=== PATIENT | male | born 1960 | race Caucasian/White ===

== ENCOUNTER 2017-02-08 10:55 | Emergency (ER) | payer SELFPAY ==
[2017-02-08 10:55] VITALS: BMI 35.7
--- NOTE | 2017-02-08 12:19 | ED PDOC ---
HPI: Headache Time Seen by Provider: 02/08/17 11:59 Chief Complaint (Nursing): Headache Chief Complaint (Provider): Headache History Per: Patient History/Exam Limitations: no limitations Onset/Duration Of Symptoms: Hrs Current Symptoms Are (Timing): Still Present Severity: Moderate Quality: "Pain" Preceeding Symptoms: None Additional Complaint(s): Patient is a 56 year old male with a history of HTN, presents to ED for evaluation of headache for 1 day. Pain is described as frontal and " a cold feeling." States that he was nervous and checked his blood pressure which was 173/111. Patient took his blood pressure mediation, Lisinipril-HCTZ and Naprosyn. Denies chest pain, palpations, vision changes, thunderclap quality, nausea, vomiting, weakness or numbness. Past Medical History Reviewed: Historical Data, Nursing Documentation, Vital Signs Vital Signs: Last Vital Signs Temp 98 F 02/08/17 11:33 Pulse 62 02/08/17 11:33 Resp 20 02/08/17 11:33 BP 135/87 02/08/17 11:33 Pulse Ox 98 02/08/17 11:33 - Medical History PMH: Arthritis, Gastritis, HTN, Hypercholesterolemia Denies: Chronic Kidney Disease - Surgical History Surgical History: Hernia Repair - Family History Family History: States: Unknown Family Hx - Living Arrangements Living Arrangements: With Family - Immunization History Hx Tetanus Toxoid Vaccination: No Hx Influenza Vaccination: Yes Hx Pneumococcal Vaccination: No - Home Medications Home Medications: Ambulatory Orders Medication Instructions Recorded Lisinopril/Hydrochlorothiazide 1 tab PO DAILY 02/08/16 [Lisinopril-Hctz 20-25 mg Tab] Cephalexin [cephalexin] 500 mg PO TID 07/25/16 Simvastatin [Zocor] 40 mg PO DAILY 07/25/16 oxyCODONE/Acetaminophen [Percocet 1 tab PO .Q4-6 PRN 07/25/16 5/325 mg Tab] traMADol [Ultram] 50 mg PO TID PRN #12 tab 11/09/16 Naproxen [Naprosyn] 500 mg PO BID PRN #15 tablet 02/08/17 - Allergies Allergies/Adverse Reactions: Allergies Allergy/AdvReac Type Severity Reaction Status Date / Time No Known Allergies Allergy Verified 02/08/17 11:33 Review of Systems ROS Statement: Except As Marked, All Systems Reviewed And Found Negative Constitutional: Negative for: Fever, Weakness Eyes: Negative for: Vision Change Cardiovascular: Negative for: Chest Pain, Palpitations Respiratory: Negative for: Shortness of Breath Gastrointestinal: Negative for: Nausea, Vomiting Neurological: Positive for: Headache. Negative for: Weakness, Numbness, Dizziness Physical Exam - Reviewed Nursing Documentation Reviewed: Yes Vital Signs Reviewed: Yes - Physical Exam Appears: Positive for: Non-toxic, No Acute Distress Head Exam: Positive for: ATRAUMATIC Skin: Positive for: Normal Color, Warm Eye Exam: Positive for: Normal appearance, EOMI, PERRL Neck: Positive for: Normal, Painless ROM, Supple Cardiovascular/Chest: Positive for: Regular Rate, Rhythm. Negative for: Murmur Respiratory: Positive for: Normal Breath Sounds. Negative for: Respiratory Distress Extremity: Positive for: Normal ROM. Negative for: Calf Tenderness Neurologic/Psych: Positive for: Alert, Oriented - Laboratory Results Result Diagrams: 02/08/17 12:55 02/08/17 12:55 - ECG Interpretation Of ECG: Sinus greg @ 52, no ST-T changes. O2 Sat by Pulse Oximetry: 98 (RA) Pulse Ox Interpretation: Normal - CT Scan/US CT head Other Rad Studies (CT/US): Radiology Report Reviewed (No evidence of acute intracranial hemorrhage intracranial collection mass effect or midline shift. [id number] sinuses mucosal disease.) Medical Decision Making Medical Decision Making: Time: 1200 Initial impression: Headache Initial plan: -- CT-head -- EKG -- CMP -- Urine dip -- CBC -- U/A Scribe Attestation: Documented by Chantel Perez acting as a scribe for Vashti Romano MD MD Scribe Attestation: All medical record entries made by the Scribe were at my direction and personally dictated by me. I have reviewed the chart and agree that the record accurately reflects my personal performance of the history, physical exam, medical decision making, and the department course for this patient. I have also personally directed, reviewed, and agree with the discharge instructions and disposition. Disposition - Clinical Impression Clinical Impression: Acute headache - Disposition Referrals: [facility] [Outside] Disposition: Routine/Home Disposition Time: 14:04 Condition: IMPROVED Prescriptions: Naproxen [Naprosyn] 500 mg PO BID PRN #15 tablet PRN Reason: Pain, Moderate (4-7) Instructions: Acute Headache (ED) Forms: [facility] ED School/Work Excuse Print Language: FRISIAN
[2017-02-08 13:14] LABS: BASO # 0.1 K/uL (0.0-0.2); BASO % 0.9 % (0.0-2.0); EOS # 0.2 K/uL (0.0-0.7); HEMATOCRIT 39.8 % (35.0-51.0); LYMPH # 1.8 K/uL (1.0-4.3); LYMPH % 32.4 % (20.0-40.0); MEAN CELL VOLUME 92.4 fl (80.0-94.0); MEAN CORPUSCULAR HEMOGLOBIN 32.3 pg (27.0-31.0); MEAN PLATELET VOLUME 8.2 fl (7.2-11.7); MONO # 0.4 K/uL (0.0-0.8); MONO % 7.4 % (0.0-10.0); NEUT # 3.2 K/uL (1.8-7.0); NEUT % 56.3 % (50.0-75.0); RED CELL DISTRIBUTION WIDTH 13.3 % (11.5-14.5); WHITE BLOOD COUNT 5.7 K/uL (4.8-10.8)
[2017-02-08 13:14] LABS: RBC URINE 1 /hpf (0-3); URINE BILIRUBIN NEGATIVE (NEGATIVE); URINE BLOOD NEGATIVE (NEGATIVE); URINE COLOR YELLOW (YELLOW); URINE GLUCOSE (UA) NEG (Normal); URINE KETONE NEGATIVE (NEGATIVE); URINE LEUKOCYTE ESTERASE NEG Leu/uL (Negative); URINE PROTEIN NEGATIVE (NEGATIVE); URINE UROBILINOGEN 0.2-1.0 mg/dL (0.2-1.0); WBC URINE < 1 /hpf (0-5)
[2017-02-08 13:37] LABS: ALB/GLOB RATIO 1.2 (1.0-2.1); ALKALINE PHOSPHATASE 99 U/L (38-126); ALT/SGPT 38 U/L (21-72); AST/SGOT 32 U/L (17-59); BLOOD UREA NITROGEN 23 mg/dl (9-20); CALCIUM 9.5 mg/dL (8.4-10.2); CARBON DIOXIDE 24 mmol/L (22-30); CHLORIDE 103 mmol/L (98-107); GFR AFRICAN-AMERICAN > 60; GLUCOSE,RANDOM 107 mg/dL (75-110); POTASSIUM 3.7 MMOL/L (3.6-5.0); SODIUM 142 mmol/l (132-148); TOTAL PROTEIN 7.7 G/DL (6.3-8.2)
--- NOTE | 2017-02-08 13:44 | CT ---
PROCEDURE: CT HEAD WITHOUT CONTRAST. HISTORY: Frontal LOPEZ COMPARISON: None available. TECHNIQUE: Axial computed tomography images were obtained through the head/brain without intravenous contrast. Radiation dose: Total exam DLP = 980.0 mGy-cm. FINDINGS: HEMORRHAGE: No intracranial hemorrhage. BRAIN: No mass effect or edema. No atrophy or chronic microvascular ischemic changes. VENTRICLES: Unremarkable. No hydrocephalus. CALVARIUM: Unremarkable. PARANASAL SINUSES: [id number] mucosal thickening seen in the sphenoid and ethmoid sinuses and mild mucosal thickening in the maxillary sinuses left more than right. MASTOID AIR CELLS: Unremarkable as visualized. No inflammatory changes. OTHER FINDINGS: None. IMPRESSION: No evidence of acute intracranial hemorrhage intracranial collection mass effect or midline shift. [id number] sinuses mucosal disease.
[2017-02-08 14:57] VITALS: BP 141/84; PULSE 60; RESP 16; TEMP 98.7
--- NOTE | 2017-02-09 07:10 | CARD ---
APPROVED REPORT EKG Measurement Heart [id number] <Conclusion> Sinus bradycardia Otherwise normal ECG
[2017-02-11 09:18] VITALS: O2SAT 98
== END 2017-02-08 14:56 | disposition home or self-care (01) ==
LOC: H.ER 10:55
DX: R51 Headache (principal); I10 Essential (primary) hypertension; E78.00 Pure hypercholesterolemia, unspecified

== ENCOUNTER 2017-04-06 09:31 | Emergency (ER) | payer SELFPAY ==
[2017-04-06 09:31] VITALS: BMI 35.7
[2017-04-06 09:36] VITALS: BP 153/90; PULSE 57; TEMP 97.6; O2SAT 99
--- NOTE | 2017-04-06 10:15 | ED PDOC ---
HPI: Back Time Seen by Provider: 04/06/17 10:14 Chief Complaint (Nursing): Back Pain Chief Complaint (Provider): low back pain History Per: Patient Additional Complaint(s): 56-year-old male presents to emergency Department with pain to right side of lower back status post heavy lifting at work 2 days ago. Patient states pain does not radiate. He denies any associated bowel or bladder dysfunction. Patient has been taking Advil and Naprosyn but this has not helped the pain. He rates current pain as 8/10. Past Medical History Reviewed: Historical Data, Nursing Documentation, Vital Signs Vital Signs: Last Vital Signs Temp 97.6 F 04/06/17 09:35 Pulse 57 L 04/06/17 09:35 Resp BP 153/90 H 04/06/17 09:35 Pulse Ox 99 04/06/17 09:35 - Medical History PMH: Arthritis, Gastritis, HTN, Hypercholesterolemia, Chronic Kidney Disease - Surgical History Surgical History: Hernia Repair Other surgeries: right foot surgery - Family History Family History: States: No Known Family Hx - Living Arrangements Living Arrangements: With Family - Social History Current smoker - smoking cessation education provided: No Alcohol: Social Drugs: Denies - Home Medications Home Medications: Ambulatory Orders Medication Instructions Recorded Lisinopril/Hydrochlorothiazide 1 tab PO DAILY 02/08/16 [Lisinopril-Hctz 20-25 mg Tab] Cephalexin [cephalexin] 500 mg PO TID 07/25/16 Simvastatin [Zocor] 40 mg PO DAILY 07/25/16 oxyCODONE/Acetaminophen [Percocet 1 tab PO .Q4-6 PRN 07/25/16 5/325 mg Tab] traMADol [Ultram] 50 mg PO TID PRN #12 tab 11/09/16 Naproxen [Naprosyn] 500 mg PO BID PRN #15 tablet 02/08/17 Cyclobenzaprine [Cyclobenzaprine 10 mg PO TID PRN #20 tab 04/06/17 HCl] Nabumetone [Relafen] 500 mg PO BID #20 tab 04/06/17 - Allergies Allergies/Adverse Reactions: Allergies Allergy/AdvReac Type Severity Reaction Status Date / Time No Known Allergies Allergy Verified 02/08/17 11:33 Review of Systems ROS Statement: Except As Marked, All Systems Reviewed And Found Negative Constitutional: Negative for: Fever Cardiovascular: Negative for: Chest Pain Respiratory: Negative for: Cough Gastrointestinal: Negative for: Nausea, Vomiting Musculoskeletal: Positive for: Back Pain Physical Exam - Reviewed Nursing Documentation Reviewed: Yes Vital Signs Reviewed: Yes - Physical Exam Appears: Positive for: Well, Non-toxic, No Acute Distress Skin: Negative for: Rash Eye Exam: Positive for: Normal appearance Cardiovascular/Chest: Positive for: Regular Rate, Rhythm Respiratory: Positive for: Normal Breath Sounds Back: Positive for: Vertebral Tenderness (Mild tenderness right lower lumbar region with palpable muscle spasm, slight tenderness to midline of lumbar spine , negative bilateral straight leg raise, no CVA tenderness bilaterally) Extremity: Positive for: Normal ROM Neurologic/Psych: Positive for: Alert, Oriented - Laboratory Results Urine dip results: Negative for: Leukocyte Esterase, Blood, Nitrate, Ketones, Glucose, Bilirubin, Protein - ECG O2 Sat by Pulse Oximetry: 99 Pulse Ox Interpretation: Normal - Other Rad L/S Spine X-ray X-Ray: Interpreted by Me, Viewed By Me X-Ray Interpretation: no fx, no dis Medical Decision Making Medical Decision Makin56 year old with low back pain s/p heavy lifting Plan: IM toradol PO flexeril X-ray LS Spine Urine dip Patient states the pain is better after meds were given. He is aware of all diagnostic testing results, all questions answered. Options given for nabumetone and Flexeril. Patient was referred to orthopedist certified registered nurse practitioner for follow up. Disposition - Clinical Impression Clinical Impression: Back strain - Patient ED Disposition Is Patient to be Admitted: No Counseled Patient/Family Regarding: Studies Performed, Diagnosis, Need For Followup, Rx Given - Disposition Referrals: Clay Medina MD [Staff Provider] - Disposition: Routine/Home Disposition Time: 14:21 Condition: IMPROVED Additional Instructions: Take prescription medications as directed as needed for pain. Avoid heavy lifting. Follow-up with orthopedist or primary doctor in 2-3 days. Prescriptions: Cyclobenzaprine [Cyclobenzaprine HCl] 10 mg PO TID PRN #20 tab PRN Reason: Muscle Spasm Nabumetone [Relafen] 500 mg PO BID #20 tab Instructions: Acute Low Back Pain (ED), Muscle Strain (ED) Forms: [facility] ED School/Work Excuse Print Language: [place]
--- NOTE | 2017-04-06 13:33 | RAD ---
PROCEDURE: Lumbar spine dated 04/06/2017 HISTORY: pain COMPARISON: No prior study available for comparison. FINDINGS: BONES: No acute compression fractures no retropulsed fragments. Vertebral bodies exhibit relatively normal stature. There is mild water levoscoliosis centered at approximately the L2-L3 level. Vertebral bodies otherwise exhibit normal alignment. DISC SPACES: Mild multilevel degenerative spondylosis. Disc. Changes include varying degrees of mild posterior disc space narrowing and slightly overgrown facet joint changes. OTHER FINDINGS: None. IMPRESSION: No acute fractures. Minor multilevel degenerative spondylosis.
== END 2017-04-06 12:44 | disposition home or self-care (01) ==
LOC: H.ER 09:31
DX: S39.012A Strain of muscle, fascia and tendon of lower back, initial encounter (principal); X50.9XXA Other and unspecified overexertion or strenuous movements or postures, initial encounter; Y99.0 Civilian activity done for income or pay; E78.00 Pure hypercholesterolemia, unspecified; I12.9 Hypertensive chronic kidney disease with stage 1 through stage 4 chronic kidney disease, or unspecified chronic kidney disease

== ENCOUNTER 2017-06-07 08:52 | Emergency (ER) | payer SELFPAY ==
[2017-06-07 08:56] VITALS: PULSE 73; TEMP 97; O2SAT 99
[2017-06-07 08:57] VITALS: BMI 35.3
--- NOTE | 2017-06-07 09:53 | ED PDOC ---
HPI: Back Time Seen by Provider: 06/07/17 09:48 Chief Complaint (Nursing): Back Pain History Per: Patient Onset/Duration Of Symptoms: Other (4 weeks) Current Symptoms Are (Timing): Still Present Quality Of Discomfort: Aching Severity: Moderate Pain Scale Rating Of: 4 Previous Symptoms: Back Pain Associated Symptoms: None Exacerbating Factor(s): Movement Additional Complaint(s): Bilat low back pain radiating to both buttocks and thighs x 4 weeks. Worse over past 2 days. No injury. No weakness or parasthesias. No urinary sxs. Past Medical History Vital Signs: Last Vital Signs Temp 97 F L 06/07/17 08:56 Pulse 73 06/07/17 08:56 Resp BP 153/92 H 06/07/17 08:56 Pulse Ox 99 06/07/17 08:56 - Medical History PMH: Arthritis, Back Problems, Gastritis, HTN, Hypercholesterolemia, Chronic Kidney Disease - Surgical History Surgical History: Hernia Repair - Family History Family History: States: Unknown Family Hx - Immunization History Hx Tetanus Toxoid Vaccination: No Hx Influenza Vaccination: Yes Hx Pneumococcal Vaccination: No - Home Medications Home Medications: Ambulatory Orders Medication Instructions Recorded Lisinopril/Hydrochlorothiazide 1 tab PO DAILY 02/08/16 [Lisinopril-Hctz 20-25 mg Tab] Cephalexin [cephalexin] 500 mg PO TID 07/25/16 Simvastatin [Zocor] 40 mg PO DAILY 07/25/16 oxyCODONE/Acetaminophen [Percocet 1 tab PO .Q4-6 PRN 07/25/16 5/325 mg Tab] traMADol [Ultram] 50 mg PO TID PRN #12 tab 11/09/16 Naproxen [Naprosyn] 500 mg PO BID PRN #15 tablet 02/08/17 Cyclobenzaprine [Cyclobenzaprine 10 mg PO TID PRN #20 tab 04/06/17 HCl] Nabumetone [Relafen] 500 mg PO BID #20 tab 04/06/17 traMADol [Ultram] 50 mg PO Q8 #10 tab 06/07/17 - Allergies Allergies/Adverse Reactions: Allergies Allergy/AdvReac Type Severity Reaction Status Date / Time No Known Allergies Allergy Verified 02/08/17 11:33 Review of Systems Constitutional: Negative for: Fever Genitourinary Male: Negative for: Dysuria, Frequency Musculoskeletal: Positive for: Back Pain Neurological: Negative for: Weakness, Numbness Physical Exam - Physical Exam Appears: Positive for: Non-toxic, Uncomfortable Skin: Positive for: Normal Color, Warm, DRY Back: Positive for: Normal Inspection, Other (Bilat paralumbar spasm and tenderness). Negative for: Vertebral Tenderness Neurologic/Psych: Positive for: Alert, Oriented. Negative for: Motor/Sensory Deficits - ECG O2 Sat by Pulse Oximetry: 99 - Progress Re-evaluation Time: 12:34 Condition: Improved Disposition - Clinical Impression Clinical Impression: Low back pain - Patient ED Disposition Is Patient to be Admitted: No - Disposition Referrals: Clay Medina MD [Staff Provider] - Disposition: Routine/Home Disposition Time: 12:35 Condition: FAIR Prescriptions: traMADol [Ultram] 50 mg PO Q8 #10 tab Instructions: Back Pain (ED) Forms: [facility] (Mohawk) Print Language: NEPALI
[2017-06-07 13:10] VITALS: BP 118/89
== END 2017-06-07 12:50 | disposition home or self-care (01) ==
LOC: H.ER 08:52
DX: M54.5 Low back pain (principal); I12.9 Hypertensive chronic kidney disease with stage 1 through stage 4 chronic kidney disease, or unspecified chronic kidney disease; N18.9 Chronic kidney disease, unspecified

== ENCOUNTER 2017-07-05 08:21 | Emergency (ER) | payer SELFPAY ==
[2017-07-05 08:28] VITALS: BMI 34.2
[2017-07-05 08:29] VITALS: PULSE 64; RESP 20; TEMP 98
[2017-07-05 08:35] VITALS: BP 130/70; O2SAT 98
--- NOTE | 2017-07-05 09:32 | ED PDOC ---
HPI: Back Time Seen by Provider: 07/05/17 09:05 Chief Complaint (Nursing): Lower Extremity Problem/Injury Chief Complaint (Provider): right lower back pain History Per: Patient History/Exam Limitations: no limitations Onset/Duration Of Symptoms: Other (x 2 months) Additional Complaint(s): Sebastian Bauer is a 56 year old male, with a previous medical history of right lower back pain, who presents to the ED with complaints of right lower back pain radiating down the right leg to the foot ongoing for 2 months. He denies any numbness, weakness, urinary complaints or paresthesia. Patient reports usually taking tramadol for the pain but reports running out of the medication. PMD: none provided Past Medical History Reviewed: Historical Data, Nursing Documentation, Vital Signs Vital Signs: Last Vital Signs Temp 98 F 07/05/17 08:32 Pulse 64 07/05/17 08:32 Resp 20 07/05/17 08:32 BP 130/70 07/05/17 08:32 Pulse Ox 98 07/05/17 08:32 - Medical History PMH: Arthritis, Back Problems, Gastritis, HTN, Hypercholesterolemia, Chronic Kidney Disease - Surgical History Surgical History: Hernia Repair - Family History Family History: States: Unknown Family Hx - Immunization History Hx Tetanus Toxoid Vaccination: No Hx Influenza Vaccination: Yes Hx Pneumococcal Vaccination: No - Home Medications Home Medications: Ambulatory Orders Medication Instructions Recorded Lisinopril/Hydrochlorothiazide 1 tab PO DAILY 02/08/16 [Lisinopril-Hctz 20-25 mg Tab] Cephalexin [cephalexin] 500 mg PO TID 07/25/16 Simvastatin [Zocor] 40 mg PO DAILY 07/25/16 oxyCODONE/Acetaminophen [Percocet 1 tab PO .Q4-6 PRN 07/25/16 5/325 mg Tab] traMADol [Ultram] 50 mg PO TID PRN #12 tab 11/09/16 Naproxen [Naprosyn] 500 mg PO BID PRN #15 tablet 02/08/17 Cyclobenzaprine [Cyclobenzaprine 10 mg PO TID PRN #20 tab 04/06/17 HCl] Nabumetone [Relafen] 500 mg PO BID #20 tab 04/06/17 traMADol [Ultram] 50 mg PO Q8 #10 tab 06/07/17 Cyclobenzaprine [Cyclobenzaprine 10 mg PO Q8 #10 tab 07/05/17 HCl] Ketorolac Tromethamine [Toradol] 10 mg PO Q8 #10 tab 07/05/17 - Allergies Allergies/Adverse Reactions: Allergies Allergy/AdvReac Type Severity Reaction Status Date / Time No Known Allergies Allergy Verified 07/05/17 08:32 Review of Systems ROS Statement: Except As Marked, All Systems Reviewed And Found Negative Genitourinary Male: Negative for: Dysuria, Frequency, Incontinence, Hematuria, Penile Discharge, Scrotal Pain Musculoskeletal: Positive for: Back Pain (right lower ), Leg Pain (right), Foot Pain (rigt ) Physical Exam - Reviewed Nursing Documentation Reviewed: Yes Vital Signs Reviewed: Yes - Physical Exam Appears: Positive for: Well, Non-toxic, No Acute Distress Head Exam: Positive for: ATRAUMATIC, NORMAL INSPECTION, NORMOCEPHALIC Skin: Positive for: Normal Color, Warm, Dry Eye Exam: Positive for: Normal appearance ENT: Positive for: Normal ENT Inspection Neck: Positive for: Normal, Painless ROM, Supple Cardiovascular/Chest: Positive for: Regular Rate, Rhythm Respiratory: Positive for: CNT, Normal Breath Sounds Gastrointestinal/Abdominal: Positive for: Normal Exam, Bowel Sounds, Soft Back: Positive for: Muscle Spasm (and tenderness to the right paraspinal area ) . Negative for: L CVA Tenderness, R CVA Tenderness, Vertebral Tenderness Extremity: Positive for: Normal ROM Neurologic/Psych: Positive for: Alert, Oriented (x 3). Negative for: Motor/ Sensory Deficits - ECG O2 Sat by Pulse Oximetry: 98 (RA) Pulse Ox Interpretation: Normal Medical Decision Making Medical Decision Making: Initial Plan: * ultram 50 mg PO * Toradol 60 mg IM * reevaluation Scribe Attestation: Documented by Vashti Zheng, acting as a scribe for Abner Kendall MD. Provider Scribe Attestation: All medical record entries made by the Scribe were at my direction and personally dictated by me. I have reviewed the chart and agree that the record accurately reflects my personal performance of the history, physical exam, medical decision making, and the department course for this patient. I have also personally directed, reviewed, and agree with the discharge instructions and disposition. Disposition - Clinical Impression Clinical Impression: Back pain - Patient ED Disposition Is Patient to be Admitted: No - Disposition Referrals: [facility] [Outside] Disposition: Routine/Home Disposition Time: 09:42 Condition: FAIR Prescriptions: Cyclobenzaprine [Cyclobenzaprine HCl] 10 mg PO Q8 #10 tab Ketorolac Tromethamine [Toradol] 10 mg PO Q8 #10 tab Instructions: Chronic Back Pain (ED) Forms: [facility] (Arabic), [facility] (Tristanian) Print Language: CHILEAN
== END 2017-07-05 10:25 | disposition home or self-care (01) ==
LOC: H.ER 08:21
DX: M54.5 Low back pain (principal)
CPT/HCPCS: 96372; 99283; J1885

== ENCOUNTER 2017-07-12 08:43 | Emergency (ER) | payer SELFPAY ==
[2017-07-12 08:43] VITALS: BMI 34.2
[2017-07-12 08:50] VITALS: TEMP 97.6
[2017-07-12 09:55] VITALS: BP 129/76; PULSE 78; RESP 18; O2SAT 99
--- NOTE | 2017-07-12 09:59 | ED PDOC ---
Lower Extremity Pain/Injury Time Seen by Provider: 07/12/17 08:57 Chief Complaint (Nursing): Lower Extremity Problem/Injury Chief Complaint (Provider): Lower Extremity Problem/Injury History Per: Patient History/Exam Limitations: no limitations Onset/Duration Of Symptoms: Days (x2 days) Additional Complaint(s): 56 y/o with a past medical history of chronic sciatic and back pain who presents to the emergency department with a complaint of a lower back pain and lower leg pain bilaterally x2 days. Reports he lifted something wrong about 3 months ago and had began to experience this pain constantly. Patient states there are no new injuries and usually goes to the clinic and pain management but cannot get an appointment until mid July. Admits taking 2 tablets of Tylenol with minimal relief of pain. Denies constipation, difficulty with urination, numbness or tingling of the lower extremities, abdominal pain, chest pain, shortness of breath, nausea, vomiting, diarrhea, or recent fall. Past Medical History Reviewed: Historical Data, Nursing Documentation, Vital Signs Vital Signs: Last Vital Signs Temp 97.6 F 07/12/17 08:49 Pulse 78 07/12/17 09:53 Resp 18 07/12/17 09:53 BP 129/76 07/12/17 09:53 Pulse Ox 99 07/12/17 09:53 - Medical History PMH: Arthritis, Back Problems, Gastritis, HTN, Hypercholesterolemia, Chronic Kidney Disease - Surgical History Surgical History: Hernia Repair - Family History Family History: States: Unknown Family Hx - Immunization History Hx Tetanus Toxoid Vaccination: No Hx Influenza Vaccination: Yes Hx Pneumococcal Vaccination: No - Home Medications Home Medications: Ambulatory Orders Medication Instructions Recorded Lisinopril/Hydrochlorothiazide 1 tab PO DAILY 02/08/16 [Lisinopril-Hctz 20-25 mg Tab] Cephalexin [cephalexin] 500 mg PO TID 07/25/16 Simvastatin [Zocor] 40 mg PO DAILY 07/25/16 oxyCODONE/Acetaminophen [Percocet 1 tab PO .Q4-6 PRN 07/25/16 5/325 mg Tab] traMADol [Ultram] 50 mg PO TID PRN #12 tab 11/09/16 Naproxen [Naprosyn] 500 mg PO BID PRN #15 tablet 02/08/17 Cyclobenzaprine [Cyclobenzaprine 10 mg PO TID PRN #20 tab 04/06/17 HCl] Nabumetone [Relafen] 500 mg PO BID #20 tab 04/06/17 traMADol [Ultram] 50 mg PO Q8 #10 tab 06/07/17 Cyclobenzaprine [Cyclobenzaprine 10 mg PO Q8 #10 tab 07/05/17 HCl] Ketorolac Tromethamine [Toradol] 10 mg PO Q8 #10 tab 07/05/17 Ibuprofen [Motrin] 600 mg PO TID 7 Days 07/12/17 - Allergies Allergies/Adverse Reactions: Allergies Allergy/AdvReac Type Severity Reaction Status Date / Time No Known Allergies Allergy Verified 07/05/17 08:32 Review of Systems Constitutional: Negative for: Other (fall) Cardiovascular: Negative for: Chest Pain Respiratory: Negative for: Shortness of Breath Gastrointestinal: Negative for: Nausea, Vomiting, Abdominal Pain, Diarrhea, Constipation Genitourinary Male: Negative for: Frequency Musculoskeletal: Positive for: Back Pain, Leg Pain (b/l) Neurological: Negative for: Numbness (or tingling of the lower legs b/l) Physical Exam - Reviewed Nursing Documentation Reviewed: Yes Vital Signs Reviewed: Yes - Physical Exam Appears: Positive for: Non-toxic, No Acute Distress Head Exam: Positive for: ATRAUMATIC, NORMAL INSPECTION, NORMOCEPHALIC Skin: Positive for: Normal Color, Warm, Dry Neck: Positive for: Normal, Supple Cardiovascular/Chest: Positive for: Regular Rate, Rhythm. Negative for: Murmur Respiratory: Positive for: Normal Breath Sounds. Negative for: Accessory Muscle Use, Wheezing, Respiratory Distress Back: Positive for: Other (Mild tenderness to the lower back region.). Negative for: Normal Inspection Extremity: Positive for: Normal ROM, Other (Straight left leg test positive at 60 degrees. ). Negative for: Pedal Edema Neurologic/Psych: Positive for: Alert, Oriented (x3) - ECG O2 Sat by Pulse Oximetry: 99 (RA) Pulse Ox Interpretation: Normal Medical Decision Making Medical Decision Making: Time: 09:16 Initial impression: Exacerbation of chronic sciatic pain Initial plan: --Toradol 15 mg IM --Reevaluation Time: 09:50 Upon provider reevaluation patient is feeling better, is medically stable, and requires no further treatment in the ED at this time. Patient will be discharged home with Rx for Motrin 600 mg. Counseling was provided and all questions were answered regarding diagnosis and need for follow up with referred clinic. There is agreement to discharge plan. Return if symptoms persist or worsen. Clinical Impression: Chronic Back Pain Scribe Attestation: Documented by Purvi Camarena, acting as a scribe for Bao Marcano MD. Provider Scribe Attestation: All medical record entries made by the Scribe were at my direction and personally dictated by me. I have reviewed the chart and agree that the record accurately reflects my personal performance of the history, physical exam, medical decision making, and the department course for this patient. I have also personally directed, reviewed, and agree with the discharge instructions and disposition. Disposition - Clinical Impression Clinical Impression: Chronic back pain - Patient ED Disposition Is Patient to be Admitted: No Counseled Patient/Family Regarding: Diagnosis, Need For Followup, Rx Given - Disposition Referrals: [facility] [Outside] - 07/13/17 Disposition: Routine/Home Disposition Time: 09:50 Condition: STABLE Additional Instructions: Return if not better in 3 days. Prescriptions: Ibuprofen [Motrin] 600 mg PO TID 7 Days Instructions: Chronic Pain (ED) Forms: [employer] (Maltese)
== END 2017-07-12 09:55 | disposition home or self-care (01) ==
LOC: H.ER 08:43
DX: M54.30 Sciatica, unspecified side (principal)
CPT/HCPCS: 96372; 99283; J1885

== ENCOUNTER 2017-09-04 11:47 | Day surgery (SDC) | payer SELFPAY ==
[2017-09-04] MEDS ORDERED: Lidocaine 1% 20 MG/2 ML PF AMP ONE (12:55)
[2017-09-04] MEDS ORDERED: Iohexol 300 10 ML ONE (12:55)
[2017-09-04 12:57] VITALS: BMI 31.6
[2017-09-04] MEDS ORDERED: Bupivacaine HCl 0.5% PF (30 ml) Inj ONE (13:51)
[2017-09-04] MEDS ORDERED: Bupivacaine HCl 0.25% PF (30 ml) Inj ONE (13:51)
[2017-09-04] MEDS ORDERED: Propofol 10 mg/ml Inj (20 ML) ONE (14:27)
[2017-09-04] MEDS: Lidocaine 1% Inj (20ml) ONE ×2 (14:29→14:30)
[2017-09-04] MEDS: methylPREDNISolone Depo 80 mg/ml Inj ONE ×2 (14:29→14:30)
[2017-09-04] MEDS ORDERED: HYDROmorphone 0.5 mg/0.5 ml ISec IVP PRN (14:43)
[2017-09-04] MEDS ORDERED: Lactated Ringer's 1,000 ML IV SCH (14:45)
[2017-09-04 14:59] VITALS: RESP 18
[2017-09-04 16:25] VITALS: BP 142/85; PULSE 64; TEMP 99.1; O2SAT 99
--- NOTE | 2017-09-04 18:52 | RAD ---
PROCEDURE: Epidural injection HISTORY: PAIN MANAGEMENT COMPARISON: None TECHNIQUE: Standard protocol for this study/examination. FINDINGS: Total fluoroscopic time (continuous mode) utilized during the procedure: 9.6 seconds. Submitted images from the current procedure: 3.0 IMPRESSION: Less than 1 hr fluoroscopic time utilized during performance of the procedure.
--- NOTE | 2017-09-04 18:56 | OP ---
PROCEDURE DATE: 09/04/2017 PREOPERATIVE DIAGNOSIS: Lumbar radiculopathy. POSTOPERATIVE DIAGNOSIS: Lumbar radiculopathy. PROCEDURE: Caudal epidural under fluoroscopic guidance. ESTIMATED BLOOD LOSS: None. COMPLICATIONS: None. DESCRIPTION OF PROCEDURE: After informed consent was obtained, the patient was brought to the OR and placed on the table in a prone position. All pressure points were padded, sedation was administered by Anesthesia. The lumbosacral spine was then prepped with iodine x3 and draped in normal sterile fashion. 2 mL of 1% lidocaine was used to create a skin wheal. A 22-gauge Tuohy epidural needle was advanced under lateral view to bullock the sacrococcygeal ligament. There was no paresthesia during placement of the needle. After negative aspiration for heme or CSF, 2 mL of Omnipaque contrast was used to delineate the epidural space. After negative aspiration for heme or CSF, 20 mL of 0.5% lidocaine and Depo-Medrol 80 mg was used and injected into the epidural space. There was no paresthesia during the procedure. The patient was brought to stage II recovery room with bilateral lower extremity motor and sensory intact. Alverto Mojica MD MAIN
== END 2017-09-04 17:00 | disposition home or self-care (01) ==
LOC: H.OPSURG 11:47
PROVIDERS: ATTEND Anesthesiology Pain Medicine
DX: M54.16 Radiculopathy, lumbar region (principal); I10 Essential (primary) hypertension
CPT/HCPCS: 62323; J1040; J2001; J2704; J7120; Q9967

== ENCOUNTER 2017-09-08 18:10 | Emergency (ER) | payer SELFPAY ==
[2017-09-08 18:10] VITALS: BMI 31.6
[2017-09-08 18:16] VITALS: RESP 16; TEMP 98.7; O2SAT 96
[2017-09-08 18:28] VITALS: BP 161/95; PULSE 59
[2017-09-08] MEDS ORDERED: Silver Nitrate Topical - Stick TOP ONE (18:39)
[2017-09-08] MEDS ORDERED: Absorbable Gelatin Sponge Size 12-7 TP ONE (18:39)
[2017-09-08] MEDS ORDERED: Absorbable Gelatin Sponge Size 12-7 ONE (18:41)
--- NOTE | 2017-09-08 18:48 | ED PDOC ---
HPI: Wound Care - HPI Time Seen by Provider: 09/08/17 18:47 Chief Complaint (Nursing): Abnormal Skin Integrity Chief Complaint (Provider): wound History Per: Patient Exam Limitations: no limitations Additional Complaint(s): 57yo M in ED for eval of bleeding lesion to forehead states he popped a pimp on his forehead and it has not stopped bleeding. not a current blood thinner. Past Medical History Reviewed: Historical Data, Nursing Documentation, Vital Signs Vital Signs: Last Vital Signs Temp 98.7 F 09/08/17 18:12 Pulse 59 L 09/08/17 18:27 Resp 16 09/08/17 18:12 BP 161/95 H 09/08/17 18:27 Pulse Ox 96 09/08/17 18:12 - Medical History PMH: Arthritis, Back Problems, Gastritis, HTN, Hypercholesterolemia Denies: Chronic Kidney Disease - Surgical History Surgical History: Hernia Repair - Family History Family History: States: Unknown Family Hx - Immunization History Hx Tetanus Toxoid Vaccination: No Hx Influenza Vaccination: Yes Hx Pneumococcal Vaccination: No - Home Medications Home Medications: Ambulatory Orders Medication Instructions Recorded Ibuprofen [Motrin Tab] 1 tab PO Q6 PRN 09/04/17 Lisinopril [Zestril] 10 mg PO DAILY 09/04/17 Simvastatin [Zocor] 1 tab PO DAILY 09/04/17 - Allergies Allergies/Adverse Reactions: Allergies Allergy/AdvReac Type Severity Reaction Status Date / Time No Known Allergies Allergy Verified 07/05/17 08:32 Review of Systems ROS Statement: Except As Marked, All Systems Reviewed And Found Negative Skin: Positive for: Lesions Physical Exam - Reviewed Nursing Documentation Reviewed: Yes Vital Signs Reviewed: Yes - Physical Exam Appears: Positive for: Well, Non-toxic, No Acute Distress Head Exam: Positive for: ATRAUMATIC, NORMAL INSPECTION, NORMOCEPHALIC Skin: Positive for: Normal Color (lesion on forehead above lright eyebrow: <1cm active slow bleeding area. no swelling surronding), Warm Neck: Positive for: Normal, Painless ROM Cardiovascular/Chest: Positive for: Regular Rate, Rhythm Respiratory: Positive for: CNT, Normal Breath Sounds Gastrointestinal/Abdominal: Positive for: Normal Exam, Bowel Sounds, Soft Back: Positive for: Normal Inspection Extremity: Positive for: Normal ROM Neurologic/Psych: Positive for: Alert, Oriented - ECG O2 Sat by Pulse Oximetry: 96 Medical Decision Making Medical Decision Making: bleeding stopped with use of silver nitrate and pressure applied with gel foam. no need further ER intervention needed Orders Category Date Time Status Gelatin Sponge 12-7 [Gelfoam Size 12-7] Med 09/08/17 18:41 Discontinued 1 spg .ROUTE .STK-MED ONE Gelatin Sponge 12-7 [Gelfoam Size 12-7] Med 09/08/17 18:39 Discontinued 1 spg TP ONCE ONE Potassium/Silver Nitrate Stick [Silver Nitrate Stick] Med 09/08/17 18:39 Discontinued 1 swa TOP ONCE ONE Disposition - Clinical Impression Clinical Impression: Visit for wound care, Laceration - Patient ED Disposition Is Patient to be Admitted: No Counseled Patient/Family Regarding: Diagnosis, Need For Followup - Disposition Disposition: Routine/Home Disposition Time: 18:52 Condition: STABLE Instructions: Puncture Wound (ED) Forms: [employer] (Georgian)
== END 2017-09-08 19:00 | disposition home or self-care (01) ==
LOC: H.ER 18:10
DX: S01.81XA Laceration without foreign body of other part of head, initial encounter (principal); Y92.89 Other specified places as the place of occurrence of the external cause

== ENCOUNTER 2017-11-22 10:28 | Emergency (ER) | payer OTHER ==
[2017-11-22 10:34] VITALS: BMI 34.9
[2017-11-22 10:36] VITALS: BP 164/76; PULSE 68; RESP 20; TEMP 97.5; O2SAT 96
--- NOTE | 2017-11-22 11:48 | ED PDOC ---
HPI: Back Time Seen by Provider: 11/22/17 11:07 Chief Complaint (Nursing): Back Pain Chief Complaint (Provider): back pain History Per: Patient History/Exam Limitations: no limitations Previous Symptoms: Back Pain Associated Symptoms: None Additional Complaint(s): 57yo F in Ed for eval of lower back pain and lower extremity pain states that he is having more acute pain, hasn't been unable to get nidhi care for further care and naproxen is no longer effective. state last week he has dysuria with burning and freq no longer has symptoms. no fever no chills no nausea no recent fall injury no calf pain - Risk Factors AAA Risk Factors: Pos: Older Than 49 Years Of Age Past Medical History Reviewed: Historical Data, Nursing Documentation, Vital Signs Vital Signs: Last Vital Signs Temp 97.5 F L 11/22/17 10:35 Pulse 68 11/22/17 10:35 Resp 20 11/22/17 10:35 BP 164/76 H 11/22/17 10:35 Pulse Ox 96 11/22/17 10:35 - Medical History PMH: Arthritis, Back Problems, Gastritis, HTN, Hypercholesterolemia Denies: Chronic Kidney Disease - Surgical History Surgical History: Hernia Repair - Family History Family History: States: Unknown Family Hx - Immunization History Hx Tetanus Toxoid Vaccination: No Hx Influenza Vaccination: Yes Hx Pneumococcal Vaccination: No - Home Medications Home Medications: Ambulatory Orders Medication Instructions Recorded Ibuprofen [Motrin Tab] 1 tab PO Q6 PRN 09/04/17 Lisinopril [Zestril] 10 mg PO DAILY 09/04/17 Simvastatin [Zocor] 1 tab PO DAILY 09/04/17 Cyclobenzaprine [Cyclobenzaprine 10 mg PO BID #14 tab 11/22/17 HCl] - Allergies Allergies/Adverse Reactions: Allergies Allergy/AdvReac Type Severity Reaction Status Date / Time No Known Allergies Allergy Verified 07/05/17 08:32 Review of Systems ROS Statement: Except As Marked, All Systems Reviewed And Found Negative Gastrointestinal: Negative for: Nausea, Vomiting, Abdominal Pain Physical Exam - Reviewed Nursing Documentation Reviewed: Yes Vital Signs Reviewed: Yes - Physical Exam Appears: Positive for: Well, Non-toxic, No Acute Distress Skin: Positive for: Normal Color, Warm, DRY Cardiovascular/Chest: Positive for: Regular Rate, Rhythm Respiratory: Positive for: CNT, Normal Breath Sounds Back: Positive for: Normal Inspection. Negative for: L CVA Tenderness, R CVA Tenderness Extremity: Positive for: Normal ROM. Negative for: Calf Tenderness, Deformity, Swelling Neurologic/Psych: Positive for: Alert, Oriented - Laboratory Results Urine dip results: Negative for: Leukocyte Esterase, Blood, Nitrate, Ketones, Glucose, Bilirubin, Protein - ECG O2 Sat by Pulse Oximetry: 96 Medical Decision Making Medical Decision Making: pt most likely with exacerbation of arthritis. pt assisted with [facility] care. d/c on flexril. Disposition - Clinical Impression Clinical Impression: Low back pain - Patient ED Disposition Is Patient to be Admitted: No Counseled Patient/Family Regarding: Studies Performed, Diagnosis, Need For Followup, Rx Given - Disposition Referrals: [facility] [place] [Outside] [facility] [place] [Outside] Disposition: Routine/Home Disposition Time: 11:51 Condition: STABLE Prescriptions: Cyclobenzaprine [Cyclobenzaprine HCl] 10 mg PO BID #14 tab Instructions: Chronic Back Pain (ED) Print Language: YEMENI
== END 2017-11-22 12:33 | disposition home or self-care (01) ==
LOC: H.ER 10:28
DX: M54.9 Dorsalgia, unspecified (principal); I10 Essential (primary) hypertension; E78.00 Pure hypercholesterolemia, unspecified
CPT/HCPCS: 96372; 99282; J1885

== ENCOUNTER 2017-12-01 10:37 | Emergency (ER) | payer OTHER ==
[2017-12-01 10:37] VITALS: BMI 34.9
--- NOTE | 2017-12-01 11:28 | ED PDOC ---
HPI: Back Time Seen by Provider: 12/01/17 10:44 Chief Complaint (Nursing): Back Pain History Per: Patient Onset/Duration Of Symptoms: Days (2) Current Symptoms Are (Timing): Still Present Quality Of Discomfort: Aching Severity: Moderate Pain Scale Rating Of: 5 Previous Symptoms: Back Pain Associated Symptoms: None Exacerbating Factor(s): Movement Additional Complaint(s): Chronic low back pain radiating to both legs, worse over past 2 days. Denies weakness or parasthesias. no new injury or lifting. Denies fever or urinary sxs Past Medical History Vital Signs: Last Vital Signs Temp 97.0 F L 12/01/17 10:41 Pulse 76 12/01/17 10:41 Resp 22 12/01/17 10:41 BP 191/125 H 12/01/17 10:58 Pulse Ox 96 12/01/17 10:41 - Medical History PMH: Arthritis, Back Problems, Gastritis, HTN, Hypercholesterolemia Denies: Chronic Kidney Disease - Surgical History Surgical History: Hernia Repair - Family History Family History: States: Unknown Family Hx - Immunization History Hx Tetanus Toxoid Vaccination: No Hx Influenza Vaccination: Yes Hx Pneumococcal Vaccination: No - Home Medications Home Medications: Ambulatory Orders Medication Instructions Recorded Ibuprofen [Motrin Tab] 1 tab PO Q6 PRN 09/04/17 Lisinopril [Zestril] 10 mg PO DAILY 09/04/17 Simvastatin [Zocor] 1 tab PO DAILY 09/04/17 Cyclobenzaprine [Cyclobenzaprine 10 mg PO BID #14 tab 11/22/17 HCl] oxyCODONE/Acetaminophen [Percocet 1 ea PO Q6 #6 tab 12/01/17 5/325 mg Tab] - Allergies Allergies/Adverse Reactions: Allergies Allergy/AdvReac Type Severity Reaction Status Date / Time No Known Allergies Allergy Verified 12/01/17 10:58 Review of Systems Constitutional: Negative for: Fever Genitourinary Male: Negative for: Dysuria, Frequency Musculoskeletal: Positive for: Back Pain Neurological: Negative for: Weakness, Numbness Physical Exam - Physical Exam Appears: Positive for: Non-toxic, Uncomfortable Skin: Positive for: Normal Color, Warm, DRY Back: Positive for: Normal Inspection, Other (paravertebral spasm and tenderness lumbar area). Negative for: Vertebral Tenderness Neurologic/Psych: Positive for: Alert, Oriented. Negative for: Motor/Sensory Deficits - ECG O2 Sat by Pulse Oximetry: 96 Disposition - Clinical Impression Clinical Impression: Low back pain - Patient ED Disposition Is Patient to be Admitted: No Counseled Patient/Family Regarding: Diagnosis, Need For Followup, Rx Given - Disposition Referrals: Cuco Grimaldo III, MD [Staff Provider] - Disposition: Routine/Home Disposition Time: 14:43 Condition: FAIR Prescriptions: oxyCODONE/Acetaminophen [Percocet 5/325 mg Tab] 1 ea PO Q6 #6 tab Instructions: Chronic Back Pain (ED) Forms: [employer] (Chinese) Print Language: MAORI
[2017-12-01 13:14] VITALS: RESP 18; TEMP 98
[2017-12-01] MEDS ORDERED: Oxycodone/Acetaminophen 5/325 mg Tab PO STA (13:26)
[2017-12-01 14:57] VITALS: BP 140/90; PULSE 58; O2SAT 95
== END 2017-12-01 15:01 | disposition home or self-care (01) ==
LOC: H.ER 10:37
DX: M54.9 Dorsalgia, unspecified (principal); E78.00 Pure hypercholesterolemia, unspecified; I10 Essential (primary) hypertension
CPT/HCPCS: 96372; 99283; J1885

== ENCOUNTER 2017-12-07 13:09 | Emergency (ER) | payer SELFPAY ==
[2017-12-07 13:12] VITALS: BMI 34.2
[2017-12-07 13:13] VITALS: O2SAT 98
--- NOTE | 2017-12-07 13:42 | ED PDOC ---
HPI: Headache Time Seen by Provider: 12/07/17 13:21 Chief Complaint (Nursing): High Blood Pressure Chief Complaint (Provider): Headache History Per: Patient History/Exam Limitations: no limitations Onset/Duration Of Symptoms: Days Current Symptoms Are (Timing): Still Present Quality: "Pain" Additional Complaint(s): 57yo male with history of hypertension, presents to ED with complaints of left sided headache since yesterday. Patient was seen today at the [facility] and was found to have elevated blood pressure. He denies any associated dizziness, chest pain or shortness of breath. Patient also denies any weakness or paresthesias. He has no other medical complaints. Past Medical History Reviewed: Historical Data, Nursing Documentation, Vital Signs Vital Signs: Last Vital Signs Temp 98.2 F 12/07/17 13:12 Pulse 67 12/07/17 13:12 Resp 17 12/07/17 13:12 BP 181/124 H 12/07/17 13:12 Pulse Ox 98 12/07/17 13:12 - Medical History PMH: Arthritis, Back Problems, Gastritis, HTN, Hypercholesterolemia Denies: Chronic Kidney Disease - Surgical History Surgical History: Hernia Repair - Family History Family History: States: No Known Family Hx, Unknown Family Hx - Immunization History Hx Tetanus Toxoid Vaccination: No Hx Influenza Vaccination: Yes Hx Pneumococcal Vaccination: No - Home Medications Home Medications: Ambulatory Orders Medication Instructions Recorded Ibuprofen [Motrin Tab] 1 tab PO Q6 PRN 09/04/17 Lisinopril [Zestril] 10 mg PO DAILY 09/04/17 Simvastatin [Zocor] 1 tab PO DAILY 09/04/17 Cyclobenzaprine [Cyclobenzaprine 10 mg PO BID #14 tab 11/22/17 HCl] oxyCODONE/Acetaminophen [Percocet 1 ea PO Q6 #6 tab 12/01/17 5/325 mg Tab] - Allergies Allergies/Adverse Reactions: Allergies Allergy/AdvReac Type Severity Reaction Status Date / Time No Known Allergies Allergy Verified 12/07/17 13:12 Review of Systems ROS Statement: Except As Marked, All Systems Reviewed And Found Negative Cardiovascular: Negative for: Chest Pain, Palpitations Respiratory: Negative for: Shortness of Breath Neurological: Positive for: Headache. Negative for: Weakness, Numbness, Dizziness Physical Exam - Reviewed Nursing Documentation Reviewed: Yes Vital Signs Reviewed: Yes - Physical Exam Appears: Positive for: Non-toxic, No Acute Distress Head Exam: Positive for: ATRAUMATIC, NORMAL INSPECTION, NORMOCEPHALIC Eye Exam: Positive for: Normal appearance, PERRL Neck: Positive for: Supple Cardiovascular/Chest: Positive for: Regular Rate, Rhythm Respiratory: Positive for: Normal Breath Sounds. Negative for: Wheezing, Respiratory Distress Gastrointestinal/Abdominal: Positive for: Normal Exam, Soft. Negative for: Tenderness Extremity: Positive for: Normal ROM. Negative for: Tenderness (lower extremity) , Pedal Edema Neurologic/Psych: Positive for: Alert, Oriented. Negative for: Motor/Sensory Deficits - ECG O2 Sat by Pulse Oximetry: 98 (RA) Pulse Ox Interpretation: Normal Medical Decision Making Medical Decision Making: Impression: Headache Plan: -- EKG -- Catapres 0.1 mg PO Reassess Scribe Attestation: Documented by Sybil Marte acting as a scribe for Abner Kendall MD. Provider Attestation: All medical record entries made by the Scribe were at my direction and personally dictated by me. I have reviewed the chart and agree that the record accurately reflects my personal performance of the history, physical exam, medical decision making, and the department course for this patient. I have also personally directed, reviewed, and agree with the discharge instructions and disposition. Disposition - Clinical Impression Clinical Impression: Hypertension - Patient ED Disposition Is Patient to be Admitted: No Counseled Patient/Family Regarding: Studies Performed, Diagnosis, Need For Followup - Disposition Referrals: [facility] [Outside] Disposition: Routine/Home Disposition Time: 16:38 Condition: FAIR Instructions: Hypertension (ED) Forms: [employer] ([place]izen [place]) Print Language: SLOVENIAN
[2017-12-07 16:14] VITALS: BP 160/98; PULSE 61; RESP 20; TEMP 97.7
--- NOTE | 2017-12-08 18:17 | CARD ---
APPROVED REPORT EKG Measurement Heart [id number] <Conclusion> Normal sinus rhythm Prolonged QT Abnormal ECG
== END 2017-12-07 16:45 | disposition home or self-care (01) ==
LOC: H.ER 13:09
DX: I10 Essential (primary) hypertension (principal); E78.00 Pure hypercholesterolemia, unspecified

== ENCOUNTER 2018-01-01 10:45 | Day surgery (SDC) | payer SELFPAY ==
[2017-12-29 11:13] VITALS: BMI 31.6
[2018-01-01 11:30] VITALS: RESP 18
[2018-01-01] MEDS ORDERED: methylPREDNISolone Depo 80 mg/ml Inj ONE (12:56)
[2018-01-01] MEDS ORDERED: Bupivacaine HCl 0.25% PF (10 ml) Inj ONE (12:56)
[2018-01-01] MEDS ORDERED: Lidocaine 1% Inj (20ml) ONE (12:56)
[2018-01-01] MEDS ORDERED: Lactated Ringer's 1,000 ML IV ONE (13:55)
[2018-01-01] MEDS ORDERED: Lidocaine 1% Inj (20ml) IJ ONE (13:59)
[2018-01-01] MEDS ORDERED: Midazolam 2 MG/2 ML VIAL ONE (13:59)
[2018-01-01] MEDS ORDERED: HYDROmorphone 0.5 mg/0.5 ml ISec IVP PRN (14:12)
[2018-01-01 16:45] VITALS: BP 132/76; PULSE 57; TEMP 97.6; O2SAT 99
--- NOTE | 2018-01-01 22:01 | OP ---
PROCEDURE DATE: 01/01/2018 PREOPERATIVE DIAGNOSIS: Sacroiliitis. POSTOPERATIVE DIAGNOSIS: Sacroiliitis. PROCEDURE: Sacroiliac joint injection under fluoroscopic guidance. ANESTHESIOLOGIST: Dr. Pascual. COMPLICATIONS: None. ESTIMATED BLOOD LOSS: None. DESCRIPTION OF PROCEDURE: After informed consent was obtained, the patient was brought to the OR and placed on the table in prone position. All pressure points were padded, sedation was administered by Anesthesia. The lumbosacral spine was prepped with iodine x3 and draped in the normal sterile fashion. After a sterile prep and drape, 3 mL of 1% lidocaine was used to create skin wheals using a 25-gauge needle. X-ray was used in AP view to identify the right sacroiliac joint. A 22-gauge 3.5-inch spinal needle was placed to bony contact at the inferomedial edge of the right sacroiliac joint. There was no paresthesia during placement of the needle. After negative aspiration for heme or CSF, 2 mL of 0.25% preservative-free Marcaine and Depo-Medrol was easily instilled. This procedure was repeated for the middle, and superior borders of the right sacroiliac joint and lower, middle, and superior borders of the left sacroiliac joint. There was no paresthesia during the case. The patient was brought to stage III recovery room with bilateral lower extremity motor and sensory intact. An 80 mg of Depo-Medrol was used for the case. Alverto Mojica MD MTDD
--- NOTE | 2018-01-04 13:57 | RAD ---
PROCEDURE: Intraoperative Fluoroscopy. HISTORY: PAIN MANAGEMENT FINDINGS: Fluoroscopic assistance was provided for pain management procedure. Please refer to the operative report from ALTHEA Pedroza. 30.8 seconds of fluoroscopy time was utilized with a total radiation dose DLP 9.61 mGy.
== END 2018-01-01 16:45 | disposition home or self-care (01) ==
LOC: H.OPSURG 10:45
PROVIDERS: ATTEND Anesthesiology Pain Medicine
DX: M46.1 Sacroiliitis, not elsewhere classified (principal); E78.5 Hyperlipidemia, unspecified; I10 Essential (primary) hypertension
CPT/HCPCS: 27096; J1040; J2250; J3010; J7120

== ENCOUNTER 2018-02-16 09:09 | Inpatient (IN) | payer SELFPAY ==
[2018-02-16 09:25] VITALS: BMI 34.2
--- NOTE | 2018-02-16 10:38 | ED PDOC ---
HPI: General Adult Time Seen by Provider: 02/16/18 10:15 Chief Complaint (Nursing): Dizziness/Lightheaded Chief Complaint (Provider): near syncope History Per: Patient History/Exam Limitations: language barrier Onset/Duration Of Symptoms: Other (just prior to ED arrival) Have you had recent travel within the past 21 days to any of the following countries: [place], [place], [place] or [place]?: No Current Symptoms Are (Timing): Other (still present) Severity: Mild Quality: mild-moderate Similar Symptoms Previously: none Recent Trauma: no Additional Complaint(s): pt p/w + sudden onset of not feeling well while at work today, just prior to ED arrival; pt felt extremely dizzy/lightheaded, like he was about to pass out; pt did not pass out; pt states he also had diffuse headache/cramps; pt also + felt + chest cramps/pressure, mainly left sided, non-radiating; + palpitations, mild sob; + profuse sweating as well; no fever/chills, no abd pain, + mild nausea, no vomiting, no numbness/tingling, no urinary/bowel changes, no fall/trauma/ sick contact, no travel. pt denied any bleeding lately pt denied slurr speech, vision changes, no neck pain, no focal weakness pt is here for further eval pt's without other complaints. PCP: [facility] pt is right hand dominate Family Hx: mother/father with stroke hx Past Medical History Reviewed: Historical Data, Nursing Documentation, Vital Signs Vital Signs: Last Vital Signs Temp 97.9 F 02/17/18 08:15 Pulse 61 02/17/18 08:15 Resp 18 02/17/18 08:15 BP 157/88 H 02/17/18 08:15 Pulse Ox 95 02/17/18 08:15 - Medical History PMH: Arthritis, Back Problems, Gastritis, HTN, Hypercholesterolemia Denies: Chronic Kidney Disease - Surgical History Surgical History: Hernia Repair - Family History Family History: States: Unknown Family Hx - Living Arrangements Living Arrangements: With Family - Social History Current smoker - smoking cessation education provided: No Ex-Smoker (has not smoked in the last 12 months): No Alcohol: Occasional Drugs: Denies - Immunization History Hx Tetanus Toxoid Vaccination: No Hx Influenza Vaccination: Yes Hx Pneumococcal Vaccination: No - Home Medications Home Medications: Ambulatory Orders Medication Instructions Recorded Aspirin [Ecotrin] 81 mg PO DAILY 02/16/18 Lisinopril/Hydrochlorothiazide 1 tab PO DAILY 02/16/18 [Lisinopril-Hctz 20-25 mg Tab] Naproxen [Naprosyn] 500 mg PO Q12 PRN 02/16/18 - Allergies Allergies/Adverse Reactions: Allergies Allergy/AdvReac Type Severity Reaction Status Date / Time No Known Allergies Allergy Verified 01/01/18 11:37 Review of Systems ROS Statement: Except As Marked, All Systems Reviewed And Found Negative Constitutional: Positive for: Sweats, Weakness, Malaise. Negative for: Weight loss Eyes: Negative for: Pain, Vision Change ENT: Negative for: Ear Pain Cardiovascular: Positive for: Chest Pain, Palpitations Respiratory: Negative for: Cough, Shortness of Breath, SOB with Exertion Gastrointestinal: Positive for: Nausea. Negative for: Vomiting, Abdominal Pain Genitourinary Male: Negative for: Dysuria, Hematuria Musculoskeletal: Negative for: Neck Pain, Back Pain Skin: Negative for: Rash Neurological: Positive for: Weakness, Headache, Dizziness. Negative for: Numbness, Incoordination, Altered Mental Status Physical Exam - Reviewed Nursing Documentation Reviewed: Yes Vital Signs Reviewed: Yes - Physical Exam Appears: Positive for: Well (alert/awake, GCS = 15, oriented x 3, mildly uncomfortable, NAD, resting in bed), No Acute Distress, Uncomfortable Head Exam: Positive for: ATRAUMATIC, NORMAL INSPECTION, NORMOCEPHALIC Skin: Positive for: Normal Color (cap refill < 1sec, no ulcerations, no petechiae, no rashes), Warm, Dry Eye Exam: Positive for: Normal appearance, EOMI, PERRL, Other (visual field intact b/l, no nystagmus, no photophobia). Negative for: Nystagmus ENT: Positive for: Normal ENT Inspection Neck: Positive for: Normal, Painless ROM, Supple. Negative for: Decreased ROM Cardiovascular/Chest: Positive for: Regular Rate, Rhythm, Other (+S1, +S2). Negative for: Murmur Respiratory: Positive for: Normal Breath Sounds, Other (CTA b/l, no w/r/r, no accessory muscle use noted, no tachypenia) Gastrointestinal/Abdominal: Positive for: Normal Exam, Bowel Sounds, Soft, Other (well nourished female, no focal tenderness, no masses/rebound/guarding/ rigidity, no soni's sign, no mcburney's point tenderness). Negative for: Tenderness Back: Positive for: Normal Inspection. 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 HISTORY: Chest pain/dizziness COMPARISON: 02/08/2017. TECHNIQUE: Axial computed tomography images were obtained through the head/brain without intravenous contrast. Radiation dose: Total exam DLP = 806.22 mGy-cm. This CT exam was performed using one or more of the following dose reduction techniques: Automated exposure control, adjustment of the mA and/or kV according to patient size, and/or use of iterative reconstruction technique. FINDINGS: HEMORRHAGE: No intracranial hemorrhage. BRAIN: Alonso-white matter differentiation is preserved. There is no mass, mass effect or abnormal extra-axial fluid collection. There is no territorial infarction. VENTRICLES: There is mild age-related global parenchymal volume loss and proportionate enlargement of the ventricles and cortical sulci. CALVARIUM: There is no calvarial fracture or extracranial soft tissue swelling. Stop PARANASAL SINUSES: There is mild polypoid mucosal thickening in the right sphenoid chamber and posterior ethmoid air cells. The remaining included paranasal sinuses are predominantly clear. MASTOID AIR CELLS: The mastoid air cells are underdeveloped. OTHER FINDINGS: None. IMPRESSION: No acute intracranial abnormality. Mild age-related global parenchymal volume loss. HISTORY: COMPARISON: 11/09/2016 TECHNIQUE: Chest PA and lateral FINDINGS: LINES AND TUBES: None. LUNG AND PLEURA: The lungs are well inflated and clear. There is bibasilar atelectasis. HEART AND MEDIASTINUM: The heart is not enlarged. The hilar and mediastinal contours are within normal limits. SKELETAL STRUCTURES: The bony structures are within normal limits for the patient's age. VISUALIZED UPPER ABDOMEN: Normal. OTHER FINDINGS: None. IMPRESSION: No active pulmonary disease. pt continues to have dizziness/lightheadedness pt is made aware of his medical results agrees with admission 1210 - family court justice contacted, made aware, agrees with admission Re-evaluation Time: 11:38 Condition: Improving,but remains with symptoms - Physician Consult Information Time Consulting Physican Contacted: 12:05 Physician Contacted: family carr Outcome Of Conversation: resident contacted, made aware, agrees with admission/observation Medical Decision Making Medical Decision Making: Impression: near syncope with chest pain i have consider all the differential diagnosis regarding pt's chief medical complaints/clinical findings, including but are not limited to: near syncope with chest pain A/P: near syncope with chest pain - labs - iv - xray - acs eval - ct head - supportive care - observe Disposition - Clinical Impression Clinical Impression: Near syncope, Dizziness, Chest pain with low risk of acute coronary syndrome - Patient ED Disposition Is Patient to be Admitted: Yes Discussed With : family carr (made aware, agrees with admission) Doctor Will See Patient In The: Hospital Counseled Patient/Family Regarding: Studies Performed, Diagnosis, Rx Given - Disposition Disposition Time: 12:05 Condition: STABLE - Pt Status Changed To: Hospital Disposition Of: Observation
[2018-02-16 10:56] LABS: BASO # 0.1 K/uL (0.0-0.2); BASO % 1.2 % (0.0-2.0); EOS # 0.1 K/uL (0.0-0.7); EOS % 2.5 % (0.0-4.0); HEMOGLOBIN 13.7 g/dL (12.0-18.0); LYMPH # 1.2 K/uL (1.0-4.3); LYMPH % 25.7 % (20.0-40.0); MEAN CELL VOLUME 92.3 fl (80.0-94.0); MEAN CORPUSCULAR HEMOGLOBIN 32.2 pg (27.0-31.0); MEAN CORPUSCULAR HGB CONC 34.9 g/dL (33.0-37.0); MONO # 0.4 K/uL (0.0-0.8); MONO % 8.2 % (0.0-10.0); NEUT # 2.9 K/uL (1.8-7.0); NEUT % 62.4 % (50.0-75.0); RBC 4.26 Mil/uL (4.40-5.90); RED CELL DISTRIBUTION WIDTH 13.3 % (11.5-14.5); WHITE BLOOD COUNT 4.6 K/uL (4.8-10.8)
[2018-02-16 11:01] LABS: URINE BACTERIA RARE (<OCC); URINE BILIRUBIN NEGATIVE (NEGATIVE); URINE BLOOD NEGATIVE (NEGATIVE); URINE CLARITY CLEAR (Clear); URINE COLOR YELLOW (YELLOW); URINE GLUCOSE (UA) NEG (Normal); URINE LEUKOCYTE ESTERASE NEG Leu/uL (Negative); URINE PROTEIN NEGATIVE (NEGATIVE); URINE UROBILINOGEN 0.2-1.0 mg/dL (0.2-1.0)
[2018-02-16 11:07] LABS: ALB/GLOB RATIO 1.2 (1.0-2.1); ALT/SGPT 52 U/L (21-72); AST/SGOT 32 U/L (17-59); BLOOD UREA NITROGEN 18 mg/dl (9-20); GFR AFRICAN-AMERICAN > 60; GFR NON-AFRICAN AMERICAN > 60; LIPASE 84 U/L (23-300)
[2018-02-16 11:19] LABS: B-TYPE NATRIURETIC PEPTIDE 175 pg/ml (0-900)
[2018-02-16] MEDS: Sodium Chloride 0.9% 1,000 ML IV SCH ×2 (11:28→22:18)
--- NOTE | 2018-02-16 11:38 | CT ---
PROCEDURE: CT HEAD WITHOUT CONTRAST. HISTORY: Chest pain/dizziness COMPARISON: 02/08/2017. TECHNIQUE: Axial computed tomography images were obtained through the head/brain without intravenous contrast. Radiation dose: Total exam DLP = 806.22 mGy-cm. This CT exam was performed using one or more of the following dose reduction techniques: Automated exposure control, adjustment of the mA and/or kV according to patient size, and/or use of iterative reconstruction technique. FINDINGS: HEMORRHAGE: No intracranial hemorrhage. BRAIN: Alonso-white matter differentiation is preserved. There is no mass, mass effect or abnormal extra-axial fluid collection. There is no territorial infarction. VENTRICLES: There is mild age-related global parenchymal volume loss and proportionate enlargement of the ventricles and cortical sulci. CALVARIUM: There is no calvarial fracture or extracranial soft tissue swelling. Stop PARANASAL SINUSES: There is mild polypoid mucosal thickening in the right sphenoid chamber and posterior ethmoid air cells. The remaining included paranasal sinuses are predominantly clear. MASTOID AIR CELLS: The mastoid air cells are underdeveloped. OTHER FINDINGS: None. IMPRESSION: No acute intracranial abnormality. Mild age-related global parenchymal volume loss.
--- NOTE | 2018-02-16 12:25 | RAD ---
HISTORY: COMPARISON: 11/09/2016 TECHNIQUE: Chest PA and lateral FINDINGS: LINES AND TUBES: None. LUNG AND PLEURA: The lungs are well inflated and clear. There is bibasilar atelectasis. HEART AND MEDIASTINUM: The heart is not enlarged. The hilar and mediastinal contours are within normal limits. SKELETAL STRUCTURES: The bony structures are within normal limits for the patient's age. VISUALIZED UPPER ABDOMEN: Normal. OTHER FINDINGS: None. IMPRESSION: No active pulmonary disease.
--- NOTE | 2018-02-16 13:14 | CP.PCM.HP ---
<Alexandro Mattson - Last Filed: 02/16/18 15:10> History of Present Illness - History of Present Illness History of Present Illness: Sebastian is 57 yo M patient with PMH of HTN present to the ED c/o worsening chest oppression and dizziness since this morning, patient states that symptoms start today while he was at work, with associated blurred vision and almost falling, states that the pain is restrosternal, no radiates, intermittent, 5/10, better when he take a deep breath and no aggravating factors. Patient denies nausea, vomiting, fever, headache, sob, palpitations, no abdominal pain or heartburn, no sick contacts, recent travels, denies urinary symptoms. Patient states he has been with this since 1 year ago but never felt dizzy before. Denies recent stress or anxiety. PMD: at [facility] PMH: HTN, HLP MEDS: Lisinopril 20 mg/HCTZ 25mg daily, simvastatin 40 mg daily. NKDA PSH: R foot 2015 SH: lives at home with his denies etoh, tobacco, illicit drugs ED course: VS: T 97.8 BP 143/93, HR 54, RR 20, sat 99 RA. PE CVS: RRR, + s1 s2, resp cta b/l, neuro: wnl Labs: cbc wnl, cmp wnl, EKG: no st-t changes, no ectopy Head CT neg for blood or mass. MEDS: ASA 325 mg, reglan, meclizine. Present on Admission - Present on Admission Any Indicators Present on Admission: No Review of Systems - Review of Systems All systems: reviewed and no additional remarkable complaints except (HPI) Past Patient History - Infectious Disease Hx of Infectious Diseases: None - Past Medical History & Family History Past Medical History?: Yes - Past Social History Smoking Status: Never Smoked - CARDIAC Hx Hypercholesterolemia: Yes Hx Hypertension: Yes - PULMONARY Hx Respiratory Disorders: No - NEUROLOGICAL Hx Neurological Disorder: No - HEENT Hx HEENT Problems: No - RENAL Hx Chronic Kidney Disease: No - ENDOCRINE/METABOLIC Hx Endocrine Disorders: No - HEMATOLOGICAL/ONCOLOGICAL Hx Blood Disorders: No Hx Blood Transfusions: No - INTEGUMENTARY Hx Dermatological Problems: No - MUSCULOSKELETAL/RHEUMATOLOGICAL Hx Arthritis: Yes - GASTROINTESTINAL Hx Gastritis: Yes - GENITOURINARY/GYNECOLOGICAL Hx Genitourinary Disorders: No - PSYCHIATRIC Hx Emotional Abuse: No Hx Physical Abuse: No Hx Substance Use: No - SURGICAL HISTORY Hx Surgeries: Yes Hx Herniorrhaphy: Yes (right inguinal) Hx Orthopedic Surgery: Yes (rt foot surgey) Other/Comment: Hx right foot surgery (tendon). Hx Epidural injection (steriod- lumbar spine) - ANESTHESIA Hx Anesthesia: Yes Hx Anesthesia Reactions: No Hx Malignant Hyperthermia: No Meds Allergies/Adverse Reactions: Allergies Allergy/AdvReac Type Severity Reaction Status Date / Time No Known Allergies Allergy Verified 01/01/18 11:37 Physical Exam - Constitutional Appears: No Acute Distress - Head Exam Head Exam: NORMAL INSPECTION - Eye Exam Eye Exam: EOMI, PERRL - Respiratory Exam Respiratory Exam: Clear to Auscultation Bilateral, NORMAL BREATHING PATTERN. absent: Rales, Rhonchi, Wheezes - Cardiovascular Exam Cardiovascular Exam: Bradycardia, REGULAR RHYTHM, +S1, +S2. absent: Systolic Murmur - GI/Abdominal Exam GI & Abdominal Exam: Normal Bowel Sounds, Soft. absent: Distended, Tenderness - Extremities Exam Extremities exam: Negative for: calf tenderness - Neurological Exam Neurological exam: Alert, CN II-XII Intact, Oriented x3 - Psychiatric Exam Psychiatric exam: Normal Mood - Skin Skin Exam: Dry, Intact, Warm Results - Vital Signs Recent Vital Signs: Last Vital Signs Temp 97.8 F 02/16/18 09:25 Pulse 56 L 02/16/18 13:07 Resp 20 02/16/18 13:07 BP 165/88 H 02/16/18 13:07 Pulse Ox 100 02/16/18 13:07 - Labs Result Diagrams: 02/16/18 10:52 02/16/18 10:52 Labs: Laboratory Results - last 24 hr 02/16/18 02/16/18 02/16/18 10:52 10:52 10:52 WBC 4.6 L RBC 4.26 L Hgb 13.7 Hct 39.3 MCV 92.3 MCH 32.2 H MCHC 34.9 RDW 13.3 Plt Count 228 MPV 8.0 Neut % (Auto) 62.4 Lymph % (Auto) 25.7 [place] % (Auto) 8.2 Eos % (Auto) 2.5 Baso % (Auto) 1.2 Neut # (Auto) 2.9 Lymph # (Auto) 1.2 [place] # (Auto) 0.4 Eos # (Auto) 0.1 Baso # (Auto) 0.1 Sodium 143 Potassium 3.6 Chloride 107 Carbon Dioxide 23 Anion Gap 17 BUN 18 Creatinine 0.8 Est GFR ( Amer) > 60 Est GFR (Non-Af Amer) > 60 Random Glucose 116 H Calcium 9.0 Phosphorus 3.0 Magnesium 2.1 Total Bilirubin 1.0 AST 32 ALT 52 Alkaline Phosphatase 76 Troponin I < 0.0120 NT-Pro-B Natriuret Pep 175 Total Protein 7.4 Albumin 4.0 Globulin 3.4 Albumin/Globulin Ratio 1.2 Lipase 84 TSH 3rd Generation 1.68 Urine Color Yellow Urine Clarity Clear Urine pH 6.0 Ur Specific [place] 1.018 Urine Protein Negative Urine Glucose (UA) Neg Urine Ketones Negative Urine Blood Negative Urine Nitrate Negative Urine Bilirubin Negative Urine Urobilinogen 0.2-1.0 Ur Leukocyte Esterase Neg Urine RBC (Auto) 2 Urine Microscopic WBC 1 Urine Bacteria Rare Assessment & Plan - Assessment and Plan (Free Text) Assessment: 57 yo M patient with PMH of HTN admitted for chest pain and near syncope. Plan: 1- Chest pain/ near syncope /r/o ACS/aortic disection - admit to tele - heart healthy diet - VS Q4 - ASA 81 mg PO daily - ED EKG prolonged QT, sinus greg, no ST-T changes - CXR: neg - Head CT: negative for blood or mass - RA BP 193/100, LA BP 182/99 - Troponin x1 neg - asymptomatic now - CBC,CMP,UA wnl - f/u troponin in AM - f/u EKG in AM 2- HTN, controlled - continue with home meds - lisinopril 20 mg PO daily -HCTZ 25 mg PO daily 3- DVT prophylaxis - Heparin 5000 units BID <Gladys Max - Last Filed: 02/17/18 09:46> Results - Vital Signs Recent Vital Signs: Last Vital Signs Temp 97.9 F 02/17/18 08:15 Pulse 61 02/17/18 08:15 Resp 18 02/17/18 08:15 BP 157/88 H 02/17/18 08:15 Pulse Ox 95 02/17/18 08:15 - Labs Result Diagrams: 02/17/18 05:55 02/17/18 05:55 Labs: Laboratory Results - last 24 hr 02/16/18 02/16/18 02/16/18 10:52 10:52 10:52 WBC 4.6 L RBC 4.26 L Hgb 13.7 Hct 39.3 MCV 92.3 MCH 32.2 H MCHC 34.9 RDW 13.3 Plt Count 228 MPV 8.0 Neut % (Auto) 62.4 Lymph % (Auto) 25.7 [place] % (Auto) 8.2 Eos % (Auto) 2.5 Baso % (Auto) 1.2 Neut # (Auto) 2.9 Lymph # (Auto) 1.2 [place] # (Auto) 0.4 Eos # (Auto) 0.1 Baso # (Auto) 0.1 Sodium 143 Potassium 3.6 Chloride 107 Carbon Dioxide 23 Anion Gap 17 BUN 18 Creatinine 0.8 Est GFR ( Amer) > 60 Est GFR (Non-Af Amer) > 60 Random Glucose 116 H Calcium 9.0 Phosphorus 3.0 Magnesium 2.1 Total Bilirubin 1.0 AST 32 ALT 52 Alkaline Phosphatase 76 Troponin I < 0.0120 NT-Pro-B Natriuret Pep 175 Total Protein 7.4 Albumin 4.0 Globulin 3.4 Albumin/Globulin Ratio 1.2 Lipase 84 TSH 3rd Generation 1.68 Urine Color Yellow Urine Clarity Clear Urine pH 6.0 Ur Specific [place] 1.018 Urine Protein Negative Urine Glucose (UA) Neg Urine Ketones Negative Urine Blood Negative Urine Nitrate Negative Urine Bilirubin Negative Urine Urobilinogen 0.2-1.0 Ur Leukocyte Esterase Neg Urine RBC (Auto) 2 Urine Microscopic WBC 1 Urine Bacteria Rare 02/16/18 02/17/18 02/17/18 22:02 05:55 05:55 WBC 4.9 RBC 4.20 L Hgb 13.7 Hct 39.2 MCV 93.3 MCH 32.5 H MCHC 34.9 RDW 13.8 Plt Count 227 MPV 8.4 Neut % (Auto) 56.6 Lymph % (Auto) 30.9 [place] % (Auto) 8.8 Eos % (Auto) 2.7 Baso % (Auto) 1.0 Neut # (Auto) 2.8 Lymph # (Auto) 1.5 [place] # (Auto) 0.4 Eos # (Auto) 0.1 Baso # (Auto) 0.0 Sodium 144 Potassium 3.3 L Chloride 106 Carbon Dioxide 23 Anion Gap 18 BUN 18 Creatinine 0.9 Est GFR ( Amer) > 60 Est GFR (Non-Af Amer) > 60 Random Glucose 107 Calcium 9.2 Phosphorus Magnesium Total Bilirubin 0.8 AST 26 ALT 53 Alkaline Phosphatase 67 Troponin I 0.0150 < 0.0120 NT-Pro-B Natriuret Pep Total Protein 6.8 Albumin 3.6 Globulin 3.1 Albumin/Globulin Ratio 1.2 Lipase TSH 3rd Generation Urine Color Urine Clarity Urine pH Ur Specific [place] Urine Protein Urine Glucose (UA) Urine Ketones Urine Blood Urine Nitrate Urine Bilirubin Urine Urobilinogen Ur Leukocyte Esterase Urine RBC (Auto) Urine Microscopic WBC Urine Bacteria - PA / SALES ARCHITECT / Resident Statement MD/DO has reviewed & agrees with the documentation as recorded. MD/DO has examined the patient and agrees with the treatment plan. (PATIENT SEEN AND EXAMINED. CASE DISCUSSED WITH RESIDENT. AGREE WITH FINDINGS/PLAN)
--- NOTE | 2018-02-16 18:04 | CARD ---
APPROVED REPORT EKG Measurement Heart [id number] <Conclusion> Sinus bradycardia Prolonged QT Abnormal ECG
--- NOTE | 2018-02-16 18:08 | CARD ---
APPROVED REPORT EKG Measurement Heart [id number] <Conclusion> Sinus bradycardia Prolonged QT Abnormal ECG
[2018-02-17 00:19] VITALS: RESP 18
[2018-02-17 07:50] LABS: EOS # 0.1 K/uL (0.0-0.7); EOS % 2.7 % (0.0-4.0); HEMOGLOBIN 13.7 g/dL (12.0-18.0); LYMPH # 1.5 K/uL (1.0-4.3); LYMPH % 30.9 % (20.0-40.0); MEAN CELL VOLUME 93.3 fl (80.0-94.0); MEAN CORPUSCULAR HEMOGLOBIN 32.5 pg (27.0-31.0); MEAN CORPUSCULAR HGB CONC 34.9 g/dL (33.0-37.0); MEAN PLATELET VOLUME 8.4 fl (7.2-11.7); MONO # 0.4 K/uL (0.0-0.8); MONO % 8.8 % (0.0-10.0); NEUT # 2.8 K/uL (1.8-7.0); NEUT % 56.6 % (50.0-75.0); NRBC % 0.1 % (0.0-0.0); RBC 4.2 Mil/uL (4.40-5.90); RED CELL DISTRIBUTION WIDTH 13.8 % (11.5-14.5); WHITE BLOOD COUNT 4.9 K/uL (4.8-10.8)
[2018-02-17 07:58] LABS: ALB/GLOB RATIO 1.2 (1.0-2.1); ALBUMIN 3.6 g/dL (3.5-5.0); ALT/SGPT 53 U/L (21-72); AST/SGOT 26 U/L (17-59); BLOOD UREA NITROGEN 18 mg/dl (9-20); CALCIUM 9.2 mg/dL (8.4-10.2); GFR AFRICAN-AMERICAN > 60; GFR NON-AFRICAN AMERICAN > 60
[2018-02-17 09:59] VITALS: O2SAT 98
[2018-02-17] MEDS ORDERED: Potassium Chloride 20 mEq ER Tab PO ONE (10:00)
[2018-02-17 12:42] VITALS: BP 180/90; PULSE 62; TEMP 97.8
--- NOTE | 2018-02-18 17:59 | CP.PCM.DIS ---
<Alexandro Mattson - Last Filed: 02/18/18 18:14> Provider - Provider Date of Admission: 02/16/18 13:52 Attending physician: Gladys aMx MD Time Spent in preparation of Discharge (in minutes): 30 Diagnosis - Discharge Diagnosis (1) Chest pain Status: Resolved (2) Dizziness Status: Resolved Hospital Course - Lab Results Lab Results: Most Recent Lab Values WBC 4.9 K/uL (4.8-10.8) 02/17/18 05:55 RBC 4.20 Mil/uL (4.40-5.90) L 02/17/18 05:55 Hgb 13.7 g/dL (12.0-18.0) 02/17/18 05:55 Hct 39.2 % (35.0-51.0) 02/17/18 05:55 MCV 93.3 fl (80.0-94.0) 02/17/18 05:55 MCH 32.5 pg (27.0-31.0) H 02/17/18 05:55 MCHC 34.9 g/dL (33.0-37.0) 02/17/18 05:55 RDW 13.8 % (11.5-14.5) 02/17/18 05:55 Plt Count 227 K/uL (130-400) 02/17/18 05:55 MPV 8.4 fl (7.2-11.7) 02/17/18 05:55 Neut % (Auto) 56.6 % (50.0-75.0) 02/17/18 05:55 Lymph % (Auto) 30.9 % (20.0-40.0) 02/17/18 05:55 [place] % (Auto) 8.8 % (0.0-10.0) 02/17/18 05:55 Eos % (Auto) 2.7 % (0.0-4.0) 02/17/18 05:55 Baso % (Auto) 1.0 % (0.0-2.0) 02/17/18 05:55 Neut # (Auto) 2.8 K/uL (1.8-7.0) 02/17/18 05:55 Lymph # (Auto) 1.5 K/uL (1.0-4.3) 02/17/18 05:55 [place] # (Auto) 0.4 K/uL (0.0-0.8) 02/17/18 05:55 Eos # (Auto) 0.1 K/uL (0.0-0.7) 02/17/18 05:55 Baso # (Auto) 0.0 K/uL (0.0-0.2) 02/17/18 05:55 Sodium 144 mmol/l (132-148) 02/17/18 05:55 Potassium 3.3 MMOL/L (3.6-5.0) L 02/17/18 05:55 Chloride 106 mmol/L (98-107) 02/17/18 05:55 Carbon Dioxide 23 mmol/L (22-30) 02/17/18 05:55 Anion Gap 18 (10-20) 02/17/18 05:55 BUN 18 mg/dl (9-20) 02/17/18 05:55 Creatinine 0.9 mg/dl (0.8-1.5) 02/17/18 05:55 Est GFR ( Amer) > 60 02/17/18 05:55 Est GFR (Non-Af Amer) > 60 02/17/18 05:55 Random Glucose 107 mg/dL (75-110) 02/17/18 05:55 Calcium 9.2 mg/dL (8.4-10.2) 02/17/18 05:55 Phosphorus 3.0 mg/dl (2.5-4.5) 02/16/18 10:52 Magnesium 2.1 MG/DL (1.6-2.3) 02/16/18 10:52 Total Bilirubin 0.8 mg/dl (0.2-1.3) 02/17/18 05:55 AST 26 U/L (17-59) 02/17/18 05:55 ALT 53 U/L (21-72) 02/17/18 05:55 Alkaline Phosphatase 67 U/L (38-126) 02/17/18 05:55 Troponin I < 0.0120 ng/mL (0.00-0.120) 02/17/18 05:55 NT-Pro-B Natriuret Pep 175 pg/ml (0-900) 02/16/18 10:52 Total Protein 6.8 G/DL (6.3-8.2) 02/17/18 05:55 Albumin 3.6 g/dL (3.5-5.0) 02/17/18 05:55 Globulin 3.1 gm/dL (2.2-3.9) 02/17/18 05:55 Albumin/Globulin Ratio 1.2 (1.0-2.1) 02/17/18 05:55 Lipase 84 U/L (23-300) 02/16/18 10:52 TSH 3rd Generation 1.68 mIU/ML (0.46-4.68) 02/16/18 10:52 Urine Color Yellow (YELLOW) 02/16/18 10:52 Urine Clarity Clear (Clear) 02/16/18 10:52 Urine pH 6.0 (5.0-8.0) 02/16/18 10:52 Ur Specific Foley 1.018 (1.003-1.030) 02/16/18 10:52 Urine Protein Negative mg/dL (NEGATIVE) 02/16/18 10:52 Urine Glucose (UA) Neg mg/dL (Normal) 02/16/18 10:52 Urine Ketones Negative mg/dL (NEGATIVE) 02/16/18 10:52 Urine Blood Negative (NEGATIVE) 02/16/18 10:52 Urine Nitrate Negative (NEGATIVE) 02/16/18 10:52 Urine Bilirubin Negative (NEGATIVE) 02/16/18 10:52 Urine Urobilinogen 0.2-1.0 mg/dL (0.2-1.0) 02/16/18 10:52 Ur Leukocyte Esterase Neg Della/uL (Negative) 02/16/18 10:52 Urine RBC (Auto) 2 /hpf (0-3) 02/16/18 10:52 Urine Microscopic WBC 1 /hpf (0-5) 02/16/18 10:52 Urine Bacteria Rare (<OCC) 02/16/18 10:52 - Hospital Course Hospital Course: Sebastian is 57 yo M patient with PMH of HTN who was admitted due to c/o worsening chest oppression and dizziness x1 day. VS wnl EKG sinus bradycardia, no change on repeat. Head CT neg for bleed and masses. R/O ACS troponin x3 negative. R/O thyrotoxicosis TSH normal ASA 325 mg PO NTG SL once Patient asymptomatic at discharge time Advise stop NSAIDs intake ED precautions F/U with PMD on 02/23/18 at 1:40 pm Discharge Exam - Head Exam Head Exam: ATRAUMATIC, NORMAL INSPECTION, NORMOCEPHALIC - Eye Exam Eye Exam: EOMI, PERRL - Respiratory Exam Respiratory Exam: Clear to PA & Lateral, NORMAL BREATHING PATTERN. absent: Chest Wall Tenderness - Cardiovascular Exam Cardiovascular Exam: Bradycardia, REGULAR RHYTHM, +S1, +S2. absent: Systolic Murmur - GI/Abdominal Exam GI & Abdominal Exam: Normal Bowel Sounds, Soft. absent: Distended, Tenderness - Neurological Exam Neurological exam: Alert, CN II-XII Intact, Oriented x3 - Skin Skin Exam: Dry, Warm Discharge Plan - Discharge Medications Prescriptions: Pantoprazole Sodium [Protonix] 20 mg PO DAILY 14 Days #14 ect - Follow Up Plan Condition: STABLE Disposition: HOME/ ROUTINE Instructions: Chest Pain That Is Not Caused by the Heart (DC), Chest Pain (DC) , Dizziness, Nonvertigo, (DC), Near Fainting (DC) Additional Instructions: F/U with PCP Dr Paez on 02/23/18 at 1: 40 pm at [facility] D/C naproxen, ibuprofen, and others NSAID, f/u with pain management Restart ASA 81 mg on Monday Start Protonix 20mg daily x 14 days. <Gladys Max - Last Filed: 02/19/18 07:05> Provider - Provider Date of Admission: 02/16/18 13:52 Attending physician: Gladys Max MD Consults: ATTENDING NOTE ATTESTION. - PATIENT SEEN AND EXAMINED. CASE DISCUSSED WITH RESIDENT. AGREE WITH FINDINGS AND PLAN. Hospital Course - Lab Results Lab Results: Most Recent Lab Values WBC 4.9 K/uL (4.8-10.8) 02/17/18 05:55 RBC 4.20 Mil/uL (4.40-5.90) L 02/17/18 05:55 Hgb 13.7 g/dL (12.0-18.0) 02/17/18 05:55 Hct 39.2 % (35.0-51.0) 02/17/18 05:55 MCV 93.3 fl (80.0-94.0) 02/17/18 05:55 MCH 32.5 pg (27.0-31.0) H 02/17/18 05:55 MCHC 34.9 g/dL (33.0-37.0) 02/17/18 05:55 RDW 13.8 % (11.5-14.5) 02/17/18 05:55 Plt Count 227 K/uL (130-400) 02/17/18 05:55 MPV 8.4 fl (7.2-11.7) 02/17/18 05:55 Neut % (Auto) 56.6 % (50.0-75.0) 02/17/18 05:55 Lymph % (Auto) 30.9 % (20.0-40.0) 02/17/18 05:55 [place] % (Auto) 8.8 % (0.0-10.0) 02/17/18 05:55 Eos % (Auto) 2.7 % (0.0-4.0) 02/17/18 05:55 Baso % (Auto) 1.0 % (0.0-2.0) 02/17/18 05:55 Neut # (Auto) 2.8 K/uL (1.8-7.0) 02/17/18 05:55 Lymph # (Auto) 1.5 K/uL (1.0-4.3) 02/17/18 05:55 [place] # (Auto) 0.4 K/uL (0.0-0.8) 02/17/18 05:55 Eos # (Auto) 0.1 K/uL (0.0-0.7) 02/17/18 05:55 Baso # (Auto) 0.0 K/uL (0.0-0.2) 02/17/18 05:55 Sodium 144 mmol/l (132-148) 02/17/18 05:55 Potassium 3.3 MMOL/L (3.6-5.0) L 02/17/18 05:55 Chloride 106 mmol/L (98-107) 02/17/18 05:55 Carbon Dioxide 23 mmol/L (22-30) 02/17/18 05:55 Anion Gap 18 (10-20) 02/17/18 05:55 BUN 18 mg/dl (9-20) 02/17/18 05:55 Creatinine 0.9 mg/dl (0.8-1.5) 02/17/18 05:55 Est GFR ( Amer) > 60 02/17/18 05:55 Est GFR (Non-Af Amer) > 60 02/17/18 05:55 Random Glucose 107 mg/dL (75-110) 02/17/18 05:55 Calcium 9.2 mg/dL (8.4-10.2) 02/17/18 05:55 Phosphorus 3.0 mg/dl (2.5-4.5) 02/16/18 10:52 Magnesium 2.1 MG/DL (1.6-2.3) 02/16/18 10:52 Total Bilirubin 0.8 mg/dl (0.2-1.3) 02/17/18 05:55 AST 26 U/L (17-59) 02/17/18 05:55 ALT 53 U/L (21-72) 02/17/18 05:55 Alkaline Phosphatase 67 U/L (38-126) 02/17/18 05:55 Troponin I < 0.0120 ng/mL (0.00-0.120) 02/17/18 05:55 NT-Pro-B Natriuret Pep 175 pg/ml (0-900) 02/16/18 10:52 Total Protein 6.8 G/DL (6.3-8.2) 02/17/18 05:55 Albumin 3.6 g/dL (3.5-5.0) 02/17/18 05:55 Globulin 3.1 gm/dL (2.2-3.9) 02/17/18 05:55 Albumin/Globulin Ratio 1.2 (1.0-2.1) 02/17/18 05:55 Lipase 84 U/L (23-300) 02/16/18 10:52 TSH 3rd Generation 1.68 mIU/ML (0.46-4.68) 02/16/18 10:52 Urine Color Yellow (YELLOW) 02/16/18 10:52 Urine Clarity Clear (Clear) 02/16/18 10:52 Urine pH 6.0 (5.0-8.0) 02/16/18 10:52 Ur Specific [place] 1.018 (1.003-1.030) 02/16/18 10:52 Urine Protein Negative mg/dL (NEGATIVE) 02/16/18 10:52 Urine Glucose (UA) Neg mg/dL (Normal) 02/16/18 10:52 Urine Ketones Negative mg/dL (NEGATIVE) 02/16/18 10:52 Urine Blood Negative (NEGATIVE) 02/16/18 10:52 Urine Nitrate Negative (NEGATIVE) 02/16/18 10:52 Urine Bilirubin Negative (NEGATIVE) 02/16/18 10:52 Urine Urobilinogen 0.2-1.0 mg/dL (0.2-1.0) 02/16/18 10:52 Ur Leukocyte Esterase Neg Della/uL (Negative) 02/16/18 10:52 Urine RBC (Auto) 2 /hpf (0-3) 02/16/18 10:52 Urine Microscopic WBC 1 /hpf (0-5) 02/16/18 10:52 Urine Bacteria Rare (<OCC) 02/16/18 10:52
--- NOTE | 2018-02-19 13:39 | CARD ---
APPROVED REPORT EKG Measurement Heart [id number] <Conclusion> Normal sinus rhythm Normal ECG
== END 2018-02-17 14:45 | disposition home or self-care (01) | DRG 143 ==
LOC: H.ER 09:09 → H.ERHOLD 12:17 → OBSVTOIN 13:52 → H.TEL 16:44
PROVIDERS: ADMIT Emergency Medicine; ATTEND Emergency Medicine
DX: R07.9 Chest pain, unspecified (principal); E78.00 Pure hypercholesterolemia, unspecified; E78.5 Hyperlipidemia, unspecified; I10 Essential (primary) hypertension; Z79.82 Long term (current) use of aspirin; K29.70 Gastritis, unspecified, without bleeding; M19.90 Unspecified osteoarthritis, unspecified site; R00.1 Bradycardia, unspecified

== ENCOUNTER 2018-04-26 09:16 | Emergency (ER) | payer SELFPAY ==
[2018-04-26 09:17] VITALS: BMI 34.2
[2018-04-26 09:20] VITALS: TEMP 98.1
[2018-04-26] MEDS ORDERED: Oxycodone/Acetaminophen 5/325 mg Tab PO STA ×2 (09:47→16:04)
[2018-04-26] MEDS ORDERED: Oxycodone/Acetaminophen 5/325 mg Tab ONE ×2 (09:51→16:10)
[2018-04-26 10:29] LABS: BASO # 0.1 K/uL (0.0-0.2); BASO % 0.8 % (0.0-2.0); EOS # 0.3 K/uL (0.0-0.7); EOS % 3.3 % (0.0-4.0); HEMOGLOBIN 14.2 g/dL (12.0-18.0); LYMPH # 1.3 K/uL (1.0-4.3); LYMPH % 13.9 % (20.0-40.0); MEAN CELL VOLUME 92.6 fl (80.0-94.0); MEAN CORPUSCULAR HEMOGLOBIN 32.1 pg (27.0-31.0); MEAN CORPUSCULAR HGB CONC 34.7 g/dL (33.0-37.0); MEAN PLATELET VOLUME 8.4 fl (7.2-11.7); MONO # 0.6 K/uL (0.0-0.8); NEUT # 6.8 K/uL (1.8-7.0); NRBC % 0.1 % (0.0-0.0); RBC 4.43 Mil/uL (4.40-5.90); RED CELL DISTRIBUTION WIDTH 12.6 % (11.5-14.5); WHITE BLOOD COUNT 9.1 K/uL (4.8-10.8)
[2018-04-26 10:30] LABS: INR 1.1 (0.9-1.2); PARTIAL THROMBOPLASTIN TIME 56.5 Seconds (25.6-37.1); PROTHROMBIN TIME 12.5 Seconds (9.8-13.1)
[2018-04-26 10:37] LABS: ALB/GLOB RATIO 1.1 (1.0-2.1); ALT/SGPT 41 U/L (21-72); AST/SGOT 33 U/L (17-59); BLOOD UREA NITROGEN 14 mg/dl (9-20); CALCIUM 9.4 mg/dL (8.4-10.2); GFR AFRICAN-AMERICAN > 60; GFR NON-AFRICAN AMERICAN > 60; URIC ACID 7.2 mg/Dl (3.5-8.5)
--- NOTE | 2018-04-26 13:08 | RAD ---
PROCEDURE: Radiographs of the right elbow. HISTORY: R arm pain COMPARISON: No prior. FINDINGS: BONES: Bone alignment and mineralization are normal. There is no acute displaced fracture or bone destruction. JOINTS: Normal. SOFT TISSUES: Normal. JOINT EFFUSION: None. OTHER FINDINGS: None. IMPRESSION: No acute fracture or dislocation.
--- NOTE | 2018-04-26 13:08 | RAD ---
PROCEDURE: Right Wrist Radiographs. HISTORY: R arm pain COMPARISON: None. FINDINGS: BONES: There is an age indeterminate but likely old nonunited nonunited fracture in the scaphoid. There is diffuse bone demineralization. Bone alignment is normal. JOINTS: There is mild degenerative osteoarthrosis in the intercarpal and radiocarpal joints. SOFT TISSUES: Normal. OTHER FINDINGS: None. IMPRESSION: Is indeterminate nonunited fracture in the scaphoid. 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
--- NOTE | 2018-04-26 13:10 | RAD ---
PROCEDURE: Radiographs of the Right Forearm HISTORY: R arm pain COMPARISON: None available. TECHNIQUE: Frontal and lateral views obtained. FINDINGS: BONES: Bone alignment and mineralization are normal. There is no acute displaced fracture or bone destruction. JOINT SPACES: Unremarkable. OTHER FINDINGS: None. IMPRESSION: No acute fracture or dislocation.
--- NOTE | 2018-04-26 14:23 | ED PDOC ---
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 Denies fever or redness to arm. Denies skin changes. Taking advil and tylenol without much improvement. Past Medical History Reviewed: Historical Data, Nursing Documentation, Vital Signs Vital Signs: Last Vital Signs Temp 98.1 F 04/26/18 09:19 Pulse 79 04/26/18 09:19 Resp 16 04/26/18 09:19 BP 162/99 H 04/26/18 09:19 Pulse Ox 97 04/26/18 09:19 - Medical History PMH: Arthritis, Back Problems, Gastritis, HTN, Hypercholesterolemia Denies: Chronic Kidney Disease - Surgical History Surgical History: Hernia Repair - Family History Family History: States: Unknown Family Hx - Living Arrangements Living Arrangements: With Family - Social History Current smoker - smoking cessation education provided: No - Immunization History Hx Tetanus Toxoid Vaccination: No Hx Influenza Vaccination: Yes Hx Pneumococcal Vaccination: No - Home Medications Home Medications: Ambulatory Orders Medication Instructions Recorded Aspirin [Ecotrin] 81 mg PO DAILY 02/16/18 Lisinopril/Hydrochlorothiazide 1 tab PO DAILY 02/16/18 [Lisinopril-Hctz 20-25 mg Tab] Pantoprazole Sodium [Protonix] 20 mg PO DAILY 14 Days #14 ect 02/17/18 Naproxen [Naprosyn] 500 mg PO BID PRN #14 tablet 04/26/18 oxyCODONE/Acetaminophen [Percocet 1 ea PO Q6 PRN #12 tab 04/26/18 5/325 mg Tab] - Allergies Allergies/Adverse Reactions: Allergies Allergy/AdvReac Type Severity Reaction Status Date / Time No Known Allergies Allergy Verified 04/26/18 09:25 Review of Systems Constitutional: Negative for: Fever ENT: Negative for: Ear Pain Cardiovascular: Negative for: Chest Pain Respiratory: Negative for: Cough Gastrointestinal: Negative for: Nausea Genitourinary Male: Negative for: Dysuria Musculoskeletal: Positive for: Arm Pain, Hand Pain. Negative for: Neck Pain, Leg Pain Physical Exam - Reviewed Nursing Documentation Reviewed: Yes Vital Signs Reviewed: Yes - Physical Exam Appears: Positive for: Well, Non-toxic Head Exam: Positive for: ATRAUMATIC Skin: Positive for: Normal Color, Warm, Dry. Negative for: Rash Neck: Positive for: Normal, Painless ROM, Supple Cardiovascular/Chest: Negative for: Tachycardia Respiratory: Negative for: Respiratory Distress Extremity: Positive for: Tenderness, Other (R arm mild edema hand/wrist. tender to R elbow and wrist with ROM, no erythema) - Laboratory Results Result Diagrams: 04/26/18 10:17 04/26/18 10:17 - ECG O2 Sat by Pulse Oximetry: 97 Medical Decision Making Medical Decision Making: workup for atraumatic arm pain initiated, percocet ordered for pain labs and XRays ordered XRay reports reviewed, +DJD wrist, forearm/elbow unremarkable discussed w clinic residents for further history from residents, has seen pain management for frequent somatic complaints, had SI injection for pain mgmt recently. US duplex artery and vein obtained and reports reviewed Patient had improvement over course of ED stay. Arm was supple and pulses present. 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 Needs ortho followup, sling placed and pain medicine Rx. Disposition - Clinical Impression Clinical Impression: Arm pain - Patient ED Disposition Is Patient to be Admitted: No Counseled Patient/Family Regarding: Studies Performed - Disposition Referrals: [facility] [Outside] Disposition: Routine/Home Disposition Time: 17:30 Condition: STABLE Additional Instructions: Followup w clinic tomorrow for re-evaluation. Return to ER for any worse or new symptoms. Take pain medicine only as needed. Prescriptions: Naproxen [Naprosyn] 500 mg PO BID PRN #14 tablet PRN Reason: Pain, Moderate (4-7) oxyCODONE/Acetaminophen [Percocet 5/325 mg Tab] 1 ea PO Q6 PRN #12 tab PRN Reason: Pain, Severe (8-10) Instructions: Muscle and Bone Pain (DC) Forms: [employer] (Lao), [facility] ED School/Work Excuse Print Language: MALIAN
--- NOTE | 2018-04-26 14:31 | US ---
PROCEDURE: Right Upper Extremity Venous Doppler HISTORY: R arm pain swelling COMPARISON: None available. TECHNIQUE: Right extremity deep veins, including the lower internal jugular, subclavian, axillary and brachial veins, were evaluated flow, compressibility and respiratory phasicity. FINDINGS: Normal flow, compressibility and respiratory phasicity was observed in the right upper extremity deep veins. IMPRESSION: No evidence of deep venous thrombosis.
[2018-04-26 16:02] VITALS: BP 145/89; PULSE 68; RESP 18
--- NOTE | 2018-04-26 16:08 | US ---
PROCEDURE: HISTORY: R arm edema pain COMPARISON: None available. TECHNIQUE: Grayscale and duplex Doppler evaluation of the right upper extremity was performed. Report prepared by cardiovascular or nurse. FINDINGS: RIGHT UPPER EXTREMITY: * Prox SCA : Peak Systolic Velocity - 108.9 cm per 2nd: Doppler Waveform: Room: * Axillary: Peak Systolic Velocity - 78.9 centimeter/second: Doppler Waveform: Triphasic.: * Brachial o Peak Systolic Velocity - 126.9 centimeter/second: Doppler Waveform: Triphasic.: * Radial * Peak Systolic Velocity - go 46.0: Doppler Waveform: Biphasic: * Ulnar o Peak Systolic Velocity - 60.9: Doppler Waveform: Biphasic all: OTHER FINDINGS: None. IMPRESSION: There is no evidence of hemodynamically significant arterial insufficiency in right upper extremity.
[2018-05-04 14:36] VITALS: O2SAT 97
== END 2018-04-26 19:02 | disposition home or self-care (01) ==
LOC: H.ER 09:16
DX: M79.601 Pain in right arm (principal); E78.00 Pure hypercholesterolemia, unspecified; I10 Essential (primary) hypertension; Z79.82 Long term (current) use of aspirin